=== PATIENT | male | born 1970 | race Caucasian/White ===

== ENCOUNTER 2020-12-07 09:34 | Emergency (ER) | payer BC, SELFPAY ==
--- NOTE | ~2020-12-07 | XR_ITS ---
EXAMINATION: XR chest 2V DATE: 12/07/2020 10:01 INDICATION: Chest tightness. TECHNIQUE: Frontal and lateral views of the chest were obtained. COMPARISON: Chest 2 views 08/19/2016 FINDINGS: The chest demonstrates clear lungs without pneumonia, pleural effusion, or pneumothorax. Th e heart size is normal. There is mild chronic anterior wedging of multiple thoracic vertebral bodies. IMPRESSION: 1. No acute cardiopulmonary disease. Reviewed, dictated and finalized at location A.
[2020-12-07 09:48] VITALS: BP 144/80; PULSE 87; RESP 18; TEMP 36.3; O2SAT 99
--- NOTE | 2020-12-07 10:43 | ED.SOB ---
HPI - SOB/Dyspnea General Chief Complaint: Shortness of Breath/Dyspnea Stated Complaint: chest pain Time Seen by Provider: 12/07/20 10:09 Source: patient and RN notes reviewed Mode of arrival: ambulatory Limitations: no limitations History of Present Illness HPI Narrative: Patient presents today complaining of an asthma exacerbation x3 days. He is on day 4 of the 5 to 6-day course of 60 mg of prednisone prescribed by his office rep. States typically when he is on a prednisone course he usually has some relief by now, but does not at this time. He called his on-call office rep and was told to come to [facility] for chest x-ray. This is the first time he has had an asthma flare since having COVID-19 in May. He has reported some soreness and tightness in his back muscles as well as some shortness of breath. Denies wheezing, which is typical for him when he has an asthma flare. He is adhering to his asthma action plan. He has had both COVID-19 vaccines MD elicited complaint: shortness of breath and asthma attack Related Data Home Medications Medication Instructions Recorded Confirmed amlodipine 10 mg PO DAILY 12/07/20 12/07/20 budesonide-formoterol [Symbicort] 1 inh INHALATION DIRECTED 12/07/20 12/07/20 famotidine 40 mg PO DAILY 12/07/20 12/07/20 indapamide 2.5 mg PO DAILY 12/07/20 12/07/20 lorazepam 0.5 mg PO DIRECTED 12/07/20 12/07/20 montelukast 10 mg PO DAILY 12/07/20 12/07/20 rosuvastatin 10 mg PO DAILY 12/07/20 12/07/20 Allergies Allergy/AdvReac Type Severity Reaction Status Date / Time fluticasone furoate Allergy Difficulty Verified 12/07/20 09:59 [From Breo Ellipta] Breathing lisinopril Allergy Swelling Verified 12/07/20 09:59 of Lip/Tongue/Throat vilanterol Allergy Difficulty Verified 12/07/20 09:59 [From Breo Ellipta] Breathing Review of Systems Review of Systems: Narrative: CONSTITUTIONAL: Denies body aches, fever, chills, or sweats. EYES: Denies visual changes, redness, or discharge. ENT: Denies rhinorrhea, congestion, sore throat, or otalgia. CARDIOVASCULAR: Denies chest pain, palpitations, or edema. RESPIRATORY: Denies cough. + Shortness of breath, back tightness GASTROINTESTINAL: Denies abdominal pain, nausea, vomiting, or diarrhea. GENITOURINARY: Denies dysuria or hematuria. SKIN: Denies rash, itching, or wounds. MUSCULOSKELETAL: Denies back pain, joint pain, or myalgia. NEUROLOGIC: Denies headache, numbness, tingling, or weakness. PSYCH: Denies depression or anxiety. [facility] Past Medical History Medical History (Updated 12/07/20 @ 12:39 by Stacey Deng, FURNIT[employer] MOVER DRIVER, ) Asthma GERD (gastroesophageal reflux disease) History of COVID-19 Hypercholesterolemia Hypertension Comments At time of signature, I have reviewed and agree with nursing past medical, surgical, social and family history unless otherwise noted. Please see nursing chart for further information. There is no relevant family history pertinent to the presenting complaint Exam Narrative: Exam Narrative: GENERAL: Well-appearing, well-nourished, and in no acute distress. HEAD: Normocephalic, atraumatic. EYES: EOMI. No redness or drainage. Conjunctivae normal. ENT: Mucous membranes pink and moist. NECK: Normal AROM. Supple. No lymphadenopathy. CHEST: No respiratory distress. Slight crackle in the right lower lobe, otherwise clear. HEART: Regular rate and rhythm. No murmur appreciated. Normal peripheral pulses. MUSCULOSKELETAL: No bony tenderness. EXTREMITIES: Normal range of motion. No edema. SKIN: Warm, dry, no rash. Capillary refill normal. Normal skin turgor. NEURO: No focal deficits. Alert and oriented x3. Gait steady. PSYCH: Normal affect. No signs of depression or anxiety. Course Course Emergency Course: Patient has a prescription for Xopenex waiting for him at his pharmacy. He has been instructed to finish his prednisone course. States he will call his office rep back after he
== END 2020-12-07 10:46 | disposition home or self-care (01) ==
PROVIDERS: Emergency Provider Nurse Practitioner; PCP Family Medicine
DX: J45.901 Unspecified asthma with (acute) exacerbation (principal); Z86.16 Personal history of COVID-19; K21.9 Gastro-esophageal reflux disease without esophagitis; E78.00 Pure hypercholesterolemia, unspecified; I10 Essential (primary) hypertension
CPT/HCPCS: 71046; 99213; G0463

== ENCOUNTER 2024-11-04 02:53 | Emergency (ER) | payer BC, SELFPAY ==
[2024-11-04] VITALS (8 sets, daily range): BP systolic 171–185; BP diastolic 94–98; PULSE 67–84; RESP 14–16; TEMP 36.3–36.7; O2SAT 94–98
--- OUTSIDE RECORDS SUMMARY | 2024-11-04 02:56 | XMS_ITS ---
Author Organization [facility] [place] ([address]) Address [address] [place] [address] Care Team Providers Care Fundraising Sale Representative Name Role Phone Hoang Gilbert MD Primary Care Provider Matt holm Jada Sandra Unavailable [phone] REASON FOR VISIT Patient billed $50.00 for missed appointment Medications Medication SIG (Take, Route, Frequency, Duration) Notes Start Date End Date Status hydroCHLOROthiazide 25 MG 1 tab(s) orally once a day Not-Taking dilTIAZem HCl ER 120 MG 1 cap(s) orally every 12 hours Not-Taking Symbicort 160-4.5 MCG/ACT INHALE 2 PUFFS BY MOUTH TWICE DAILY for 90 Not-Taking SIT (TRADITIONAL) VARIABLE PER SCHEDULE SC PER SCHEDULE for TO BE DETERMINED *Please review for potential replacement for e-prescription and drug interaction check* Not-Taking predniSONE 20 MG 4 tab(s) orally once a day for 7 day(s) Not-Taking Rosuvastatin Calcium 10 MG 1 tab(s) orally once a day Not-Taking Azelastine HCl 137 MCG/SPRAY 1-2 spray(s) intranasally 2 times a day for 30 day(s) Not-Taking Xyzal Allergy 24HR 5 MG 1 tab(s) orally once a day (in the evening) for 30 day(s) Not-Taking Wixela Inhub 100 MCG-50 MCG 1 INH INHALED 2 TIMES A DAY for 30 DAYS *Please review and pick correct strength-formul ation from [employer] options. If intended option is not shown, discontinue and re-order from Quick Search* 4 Not-Taking Symbicort 160-4.5 MCG/ACT INHALE 2 PUFFS BY MOUTH TWICE DAILY for 90 Not-Taking predniSONE 20 MG 4 tab(s) orally once a day for 5 day(s) Not-Taking ZyrTEC Allergy 10 MG 1 tab(s) orally once a day Not-Taking Triamterene-HCTZ 37.5-25 MG 1 tablet in the morning Orally Once a day Not-Taking Xopenex HFA 45 MCG/ACT 2 puff(s) inhaled every 4 hours Not-Taking Fluticasone Propionate 50 MCG/ACT 2 sprays intranasally once a day for 30 day(s) Not-Taking Levalbuterol HCl 45 MCG/INH 2 PUFF(S) INHALED PER ASTHMA ACTION PLAN for 30 DAY(S) *Please review and pick correct strength-formul ation from [employer] options. If intended option is not shown, discontinue and re-order from Quick Search* Active Montelukast Sodium 10 MG 1 tab(s) orally once a day for 90 days Active Dulera 100-5 MCG/ACT 2 puffs Inhalation twice a day for 30 days 4 Not-Taking Advair Diskus 100-50 MCG/ACT 1 puff Inhalation Twice a day Not-Taking BUDESONIDE-FORMOTEROL FUMARATE DIHYDRATE 160 MCG-4.5 MCG/INH 2 PUFF(S) INHALED 2 TIMES A DAY *Please review for potential replacement for e-prescription and drug interaction check* Active Budesonide-Formoterol Fumarate 160-4.5 MCG/ACT 2 puffs Inhalation twice a day for 90 days Active Xyzal Allergy 24HR 5 MG 1 tablet in the evening Orally Once a day Active SIT (TRADITIONAL) variable per schedule SC per schedule for to be determined Active amLODIPine Besylate 10 MG 1 tab(s) orally once a day Active Vitamin D3 125 MCG (5000 UT) as directed orally once a day for 30 day(s) Active AZELASTINE HYDROCHLORIDE NASAL 137 mcg/inh 1-2 spray(s) intranasally 2 times a day for 30 day(s) Active ALBUTEROL (EQV-PROVENTIL HFA) 90 mcg/inh 2 puff(s) inhaled per asthma action plan for 30 day(s) Not-Taking ZYRTEC 10 mg 1 tab(s) orally once a day Not-Taking FLUTICASONE PROPIONATE 50 mcg/inh 2 sprays intranasally once a day for 30 day(s) Not-Taking NASAL WASHES N/A as directed intranasally as needed for 30 Not-Taking VITAMIN D3 5000 intl units as directed orally once a day for 30 day(s) Not-Taking LEVALBUTEROL 45 mcg/inh 2 puff(s) inhale d per asthma action plan for 30 day(s) Not-Taking AMLODIPINE 10 mg 1 tab(s) orally once a day Not-Taking MONTELUKAST SODIUM 10 mg 1 tab(s) orally once a day for 90 days Not-Taking XOPENEX HFA 45 mcg/inh 2 puff(s) inhaled every 4 hours Not-Taking Auvi-Q 0.3 mg 0.3 mg intramuscularly once for 30 day(s) Not-Taking Encounters Encounter Location Date Provider Diagnosis [facility] [facility] [address] [place] [address] 10/20/2024 Jada Sandra Plan Of Treatment Pending Test Test Name Order Date Spirometry 10/20/2024 Next Appt Details Follow Up: prn, Reason: Provider Name:Alireza Corona Magdy , 11/28/2024 03:10:00 PM, [address] [facility], [place], [address], Progress Notes * Romina LEVIOB:1970 (54 yo M)Acc No.[id number]:10/20/2024 Asthma F/U Patient: Shaun GRANADOS Provider: Homa Sandra PA-C :1970 A ge:54 Y S ex:Male Date:10/20/2024 Address:[address] [place], [place] [id number] Pcp:Hoang Gilbert MD Subjective: * Chief Complaints: * Deya krueger billed $50.00 for missed appointment * Medical History: * Surgical History: * Hospitalization/Major Diagno stic Procedure: * Medications: T akingAuvi-Q 0.3 mg kit 0.3 mg intramuscularly once AZELASTINE HYDROCHLORIDE NASAL 137 mcg/inh spray 1-2 spray(s) intranasally 2 times a day SIT (TRADITIONAL) variable see record per schedule SC per schedule Budesonide-Formoterol Fumarate 160-4.5 MCG/ACT Aerosol 2 puffs Inhalation twice a day Xyzal Allergy 24HR 5 MG Tablet 1 tablet in the evening Orally Once a day amLODIPine Besylate 10 MG Tablet 1 tab(s) orally once a day Vitamin D3 125 MCG (5000 UT) Capsule as directed orally once a day Levalbuterol HCl 45 MCG/INH AEROSOL 2 PUFF(S) INHALED PER ASTHMA ACTION PLAN , Notes to Pharmacist: *Please review and pick correct strength-formulation from [employer] options. If intended option is not shown, discontinue and re-order from Quick Search*Montelukast Sodium 10 MG Tablet 1 tab(s) orally once a day BUDESONIDE-FORMOTEROL FUMARATE DIHYDRATE 160 MCG-4.5 MCG/INH AEROSOL 2 PUFF(S) INHALED 2 TIMES A DAY , Notes to Pharmacist: *Please review for potential replacement for e-prescription and drug interaction check*Taking Auvi-Q 0.3 mg kit 0.3 mg intramuscularly once Taking AZELASTINE HYDROCHLORIDE NASAL 137 mcg/inh spray 1-2 spray(s) intranasally 2 times a day Taking SIT (TRADITIONAL) variable see record per schedule SC per schedule Taking Budesonide-Formoterol Fumarate 160-4.5 MCG/ACT Aerosol 2 puffs Inhalation twice a day Taking Xyzal Allergy 24HR 5 MG Tablet 1 tablet in the evening Orally Once a day Taking amLODIPine Besylate 10 MG Tablet 1 tab(s) orally once a day Taking Vitamin D3 125 MCG (5000 UT) Capsule as directed orally once a day Taking Levalbuterol HCl 45 MCG/INH AEROSOL 2 PUFF(S) INHALED PER ASTHMA ACTION PLAN , Notes to Pharmacist: *Please review and pick correct strength-formulation from [employer] options. If intended option is not shown, discontinue and re-order from Quick Search*Taking Montelukast Sodium 10 MG Tablet 1 tab(s) orally once a day Taking BUDESONIDE-FORMOTEROL FUMARATE DIHYDRATE 160 MCG-4.5 MCG/INH AEROSOL 2 PUFF(S) INHALED 2 TIMES A DAY , Notes to Pharmacist: *Please review for potential replacement for e-prescription and drug interaction check*Not-Taking/PRNAuvi-Q 0.3 mg kit 0.3 mg intramuscularly once AMLODIPINE 10 mg tablet 1 tab(s) orally once a day VITAMIN D3 5000 intl units capsule as directed orally once a day LEVALBUTEROL 45 mcg/inh aerosol 2 puff(s) inhaled per asthma action plan MONTELUKAST SODIUM 10 mg tablet 1 tab(s) orally once a day XOPENEX HFA 45 mcg/inh aerosol 2 puff(s) inhaled every 4 hours ALBUTEROL (EQV-PROVENTIL HFA) 90 mcg/inh aerosol 2 puff(s) inhaled per asthma action plan ZYRTEC 10 mg tablet 1 tab(s) orally once a day FLUTICASONE PROPIONATE 50 mcg/inh spray 2 sprays intranasally once a day NASAL WASHES N/A 1 quart of sterilized tap water or distilled water, 1 tsp NaCl, 1 pinch of baking soda as directed intranasally as needed Dulera 100-5 MCG/ACT Aerosol 2 puffs Inhalation twice a day Advair Diskus 100-50 MCG/ACT Aerosol Powder Breath Activated 1 puff Inhalation Twice a day Triamterene-HCTZ 37.5-25 MG Tablet 1 tablet in the morning Orally Once a day Xopenex HFA 45 MCG/ACT Aerosol 2 puff(s) inhaled every 4 hours predniSONE 20 MG Tablet 4 tab(s) orally once a day ZyrTEC Allergy 10 MG Tablet 1 tab(s) orally once a day Fluticasone Propionate 50 MCG/ACT Suspension 2 sprays intranasally once a day Azelastine HCl 137 MCG/SPRAY Solution 1-2 spray(s) intranasally 2 times a day Rosuvastatin Calcium 10 MG Tablet 1 tab(s) orally once a day Wixela Inhub 100 MCG-50 MCG POWDER 1 INH INHALED 2 TIMES A DAY , Notes to Pharmacist: *Please review and pick correct strength-formulation from [employer] options. If intended option is not shown, discontinue and re-order from Quick Search*Symbicort 160-4.5 MCG/ACT Aerosol INHALE 2 PUFFS BY MOUTH TWICE DAILY Xyzal Allergy 24HR 5 MG Tablet 1 tab(s) orally once a day (in the evening) predniSONE 20 MG Tablet 4 tab(s) orally once a day Symbicort 160-4.5 MCG/ACT Aerosol INHALE 2 PUFFS BY MOUTH TWICE DAILY SIT (TRADITIONAL) VARIABLE SEE RECORD PER SCHEDULE SC PER SCHEDULE , Notes to Pharmacist: *Please review for potential replacement for e-prescription and drug interaction check*hydroCHLOROthiazide 25 MG Tablet 1 tab(s) orally once a day dilTIAZem HCl ER 120 MG Capsule Extended Release 12 Hour 1 cap(s) orally every 12 hours Not- Taking/PRN Auvi-Q 0.3 mg kit 0.3 mg intramuscularly once Not-Taking/PRN AMLODIPINE 10 mg tablet 1 tab(s) orally once a day Not-Taking/PRN VITAMIN D3 5000 intl units capsule as directed orally once a day Not-Taking/PRN LEVALBUTEROL 45 mcg/inh aerosol 2 puff(s) inhaled per asthma action plan Not-Taking/PRN MONTELUKAST SODIUM 10 mg tablet 1 tab(s) orally once a day Not-Taking/PRN XOPENEX HFA 45 mcg/inh aerosol 2 puff(s) inhaled every 4 hours Not-Taking/PRN ALBUTEROL (EQV-PROVENTIL HFA) 90 mcg/inh aerosol 2 puff(s) inhaled per asthma action plan Not-Taking/PRN ZYRTEC 10 mg tablet 1 tab(s) orally once a day Not-Taking/PRN FLUTICASONE PROPIONATE 50 mcg/inh spray 2 sprays intranasally once a day Not-Taking/PRN NASAL WASHES N/A 1 quart of sterilized tap water or distilled water, 1 tsp NaCl, 1 pinch of baking soda as directed intranasally as needed Not-Taking/PRN Dulera 100-5 MCG/ACT Aerosol 2 puffs Inhalation twice a day Not-Taking/PRN Advair Diskus 100-50 MCG/ACT Aerosol Powder Breath Activated 1 puff Inhalation Twice a day Not-Taking/PRN Triamterene-HCTZ 37.5-25 MG Tablet 1 tablet in the morning Orally Once a day Not-Taking/PRN Xopenex HFA 45 MCG/ACT Aerosol 2 puff(s) inhaled every 4 hours Not-Taking/PRN predniSONE 20 MG Tablet 4 tab(s) orally once a day Not-Taking/PRN ZyrTEC Allergy 10 MG Tablet 1 tab(s) orally once a day Not-Taking/PRN Fluticasone Propionate 50 MCG/ACT Suspension 2 sprays intranasally once a day Not-Taking/PRN Azelastine HCl 137 MCG/SPRAY Solution 1-2 spray(s) intranasally 2 times a day Not-Taking/PRN Rosuvastatin Calcium 10 MG Tablet 1 tab(s) orally once a day Not-Taking/PRN Wixela Inhub 100 MCG-50 MCG POWDER 1 INH INHALED 2 TIMES A DAY , Notes to Pharmacist: *Please review and pick correct strength-formulation from [employer] options. If intended option is not shown, discontinue and re-order from Quick Search*Not-Taking/PRN Symbicort 160-4.5 MCG/ACT Aerosol INHALE 2 PUFFS BY MOUTH TWICE DAILY Not-Taking/PRN Xyzal Allergy 24HR 5 MG Tablet 1 tab(s) orally once a day (in the evening) Not-Taking/PRN predniSONE 20 MG Tablet 4 tab(s) orally once a day Not-Taking/PRN Symbicort 160-4.5 MCG/ACT Aerosol INHALE 2 PUFFS BY MOUTH TWICE DAILY Not-Taking/PRN SIT (TRADITIONAL) VARIABLE SEE RECORD PER SCHEDULE SC PER SCHEDULE , Notes to Pharmacist: *Please review for potential replacement for e-prescription and drug interaction check*Not- Taking/PRN hydroCHLOROthiazide 25 MG Tablet 1 tab(s) orally once a day Not-Taking/PRN dilTIAZem HCl ER 120 MG Capsule Extended Release 12 Hour 1 cap(s) orally every 12 hours Objective: * Vitals: Assessment: Plan: * Treatment: * Procedure Codes: 0 0002 No Show - Follow-up * Follow Up: p rn * Billing Information: * Visit Code: * Procedure Codes: 80053 No Show - Follow-up. * Sign off status: Completed true * Provider: Homa Sandra PA-C Date: 0 10/20/2024 Generated for Mima mayorga/[employer] on: 11/04/2024 02:56 AM CDT History and Physical Notes * HPI (History of Present Illness) Category Sub-Category Detail Notes Category Not es *Introduction
--- OUTSIDE RECORDS SUMMARY | 2024-11-04 02:56 | XMS_ITS | Referral Summary ---
Author Organization [facility] Address [address] [place] [id number] Care Team Providers Care Spine Surgeon Name Role Phone Hoang Gilbert MD Primary Care Provider [phone] Encounters Date Type Department Care Team Description 08/15/2024 3:30 PM WEIGH MACHINE OPERATOR Office Visit [facility] at [address] [place] [address] Haong Gilbert MD Annual physical exam (Primary Dx); Hypogonadism in male; Hyperlipidemia, unspecified hyperlipidemia type; Benign prostatic hyperplasia with urinary frequency from Last 3 Months Allergies Active Allergy Reactions Criticality Noted Date Comments Fluticasone Furoate-Vilanterol Anxiety Low 11/29/2018 Anxiety increased blood pressure Lisinopril Cough,Shortness of breath High 11/29/2018 shortness of breath Olmesartan Shortness of breath High 11/29/2018 shortness of breath Tiotropium [place] Shortness of breath High 11/04/19 20 Vilanterol Unknown Low 06/04/2019 Elevated BP Medications PROAIR HFA 90 mcg/actuation inhaler Inhale 1 puff as needed for wheezing or shortness of breath 9 Active Symbicort 160-4.5 mcg/actuation inhalerIndicatio ns:Acute Asthma Attack,Maintenan ce Therapy for Asthma Inhale 2 puffs 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 0 Active LORazepam (ATIVAN) 0.5 mg tablet Take 1 tablet (0.5 mg total) by mouth every 8 (eight) hours as needed for anxiety 30 tablet 1 Active levocetirizine (XYZAL) 5 mg tabletIndication s:Allergic Rhinitis Take 1 tablet (5 mg total) by mouth as needed for allergies Active multivitamin tabletIndication s:Vitamin Deficiency Prevention Take 1 tablet by mouth 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 Active ascorbic acid (CHRISTOPHER-C ORAL)Indications :health Take 1 tablet by mouth 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 Active vitamin D3-vitamin K2 25 mcg (1,000 unit)-90 mcg tablet,disintegr atingIndications :health Take 1 tablet by mouth 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 Active magnesium gluconate 200 mg tabletIndication s:hypomagnesemia Take 1 tablet (200 mg total) by mouth 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 Active creatinine, bulk, 100 % powderIndication s:health Take 1 Dose by mouth 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 Active food supplemt, lactose-reduced liquidIndication s:health Take 1 Dose by mouth 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 EEA Active herbal drugs tabletIndication s:SAt/. WEd Take 1 tablet by mouth 2 (two) times a week TRT- hormone therapy Active oxyCODONE (ROXICODONE) 5 mg immediate release tabletIndication s:Pain TAKE ONE TO TWO TABLETS EVERY 4 TO 6 HOURS PRN PAIN 30 tablet 4 Active docusate sodium (COLACE) 100 mg capsuleIndicatio ns:constipation Take 1 capsule (100 mg total) by mouth 2 (two) times a day for 14 days 28 capsule 4 Active rosuvastatin (CRESTOR) 10 mg tablet Take 1 tablet (10 mg total) by mouth daily Active amLODIPine (NORVASC) 10 mg tablet Take 1 tablet (10 mg total) by mouth daily 90 tablet 1 5 Active montelukast (SINGULAIR) 10 mg tablet Take 1 tablet (10 mg total) by mouth daily 90 tablet 1 5 Active tadalafiL (CIALIS) 5 mg tabletIndication s:Benign prostatic hyperplasia with urinary frequency Take 1 tablet (5 mg total) by mouth daily TAKE 1 TABLET BY MOUTH EVERY DAY NEEDED 90 tablet 1 5 Active Active Problems Problem Noted Date Diagnosed Date 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 03/08/2024 Allergic rhinitis due to animal hair and dander 09/10/2022 Allergic rhinitis due to pollen 09/10/2022 Chronic allergic conjunctivitis 09/10/2022 Allergic rhinitis 09/10/2022 High risk medication use 09/10/2022 Hypertrophy of nasal turbinates 09/10/2022 Wheezing 09/10/2022 Encounter for screening for malignant neoplasm o f colon 05/28/2022 Overview (05/28/2022): Added automatically from request for surgery [id number] Body mass index 40.0-44.9, adult ([facility]) 03/12 Paradoxical vocal fold motion disorder Assessment & Plan (02/12/2021 4:46 PM CDT): I have recommended laryngeal control therapy here at the [facility] in order to control the patient's symptoms. The patient's diagnosis was discussed in detail along with how therapy can improve it. Benign prostatic hyperplasia with urinary freque ncy 10/28/2019 Moderate persistent asthma 07/04/2019 Chronic right-sided low back pain without sciati ca 01/10/2019 Hyperlipidemia 09/06/2018 Assessment & Plan (12/30/2019 2:07 PM CDT): Low-fat low-cholesterol diet. Crestor 10 mg bedtime daily. Had min time the total cholesterol was 280 according to him. On 07/30/2019 the total cholesterol was 180, HDL 56, LDL 100, triglycerides 141. GERD (gastroesophageal reflux disease) 9 CTS (carpal tunnel syndrome) 01/11/2018 ED (erectile dysfunction) 01/11/2018 BPH (benign prostatic hyperplasia) 12/10/2017 Vitamin D deficiency 06/29/2017 Exercise-induced asthma 06/24/2017 Essential hypertension 01/15/2016 Assessment & Plan (12/30/2019 2:05 PM CDT): Blood pressure 128/82. Salt restriction. Continue the current regimen. Resolved Problems Problem Noted Date Diagnosed Date Resolved Date Acute severe exacerbation of severe persistent asthma 09/10/2022 02/17/2024 Cough 09/10/2022 02/17/2024 COVID-19 09/10/2022 02/17/2024 Shortness of breath 12/01/2019 06/01/20 Assessment & Plan (12/30/2019 2:06 PM CDT): EKG today shows normal sinus rhythm, incomplete right bundle branch block. Will get BNP level. Stress echo to look for myocardial ischemia. Apnea 11/04/2019 02/17/2024 Anxiety 07/04/2019 02/17/2024 Anal itching 03/30/2019 06/01/2020 Elbow pain 12/18/2014 06/01/2020 Immunizations Immunization Administration Dates Next Due Influenza, Quadrivalent, Spl it, Preservative Free, Intramuscular 06/20/2020,04/24/2018,04/23/2018 Influenza, Trivalent, Cell Culture-based MDCK, Preservative Free, Antibiotic Free, Intramuscular 06/14/2019 Influenza, Trivalent, IM (MDV) 04/15/2021,2018 Influenza, Unspecified 05/26/2023,2021,03/12/2022(Defer red: Patient Refused),07/13/2021(Deferred: Patient Refused),07/13/2020(Deferred: Patient Refused),04/12/2019,05/27/2017 Pneumococcal Conjugate Pcv20 03/11/2023 Pneumococcal Polysaccharide PPV23 04/18/2019 Tdap 09/10/2022 ZOSTER Recombinant 03/03/2023,12/26/2022 Social History Tobacco Use Types Packs/Day Years Used Date Smoking Tobacco: Former Cigarettes Q uit: 07/13/2006 Smokeless Tobacco: Never Tobacco Cessation:Counseling Given: Not Answered Alcohol Use Standard Drinks/Week Comments Yes 0 (1 standard drink = 0.6 oz pur e alcohol) AUDIT-C Answer Date Recorded Q1: How often do you have a drink containing alc ohol? Monthly or less 08/15/2024 Q2: How many drinks containi ng alcohol do you have on a typical day when you are drinking? 1 or 2 08/15/2024 Q3: How often do you have si x or more drinks on one occasion? Never 08/15/2024 PHQ-2 Answer Date Recorded PHQ-2 Total Score (If total score is 3 or more points, staff should administer the PHQ-9) 0 02/17/2024 Personal Safety Answer Date Recorded Have you ever been in or are you currently in a harmful physical or emotional relationship or is someone making you feel afraid or unsafe? Denies 03/21/2024 Sex and Gender Information Value Date Recorded Sex Assigned at Not on file Legal Sex Male 11:01 AM WEIGH MACHINE OPERATOR Gender Identity Male 06/01/2020 11:20 AM WEIGH MACHINE OPERATOR Sexual Orientation Straight 06/01/2020 11 :20 AM WEIGH MACHINE OPERATOR Last Filed Vital Signs Vital Sign Reading Time Taken Comments Blood Pressure 130/80 08/15/2024 3:25 PM WEIGH MACHINE OPERATOR Pulse 90 08/15/2024 3:25 PM WEIGH MACHINE OPERATOR Temperature 37 C (98.6 F) 08/15/2024 3:25 PM WEIGH MACHINE OPERATOR Respiratory Rate 15 03/21/2024 11:1 0 AM CDT Oxygen Saturation 94% 08/15/2024 3:25 PM WEIGH MACHINE OPERATOR Inhaled Oxygen Concentration - - Weight 119.9 kg (264 lb 4.8 oz) 08/15/2024 3:25 PM WEIGH MACHINE OPERATOR Height 180.3 cm (5' 11 ) 08/15/2024 3:25 PM WEIGH MACHINE OPERATOR Body Mass Index 36.86 08/15/2024 3:25 PM WEIGH MACHINE OPERATOR Plan of Treatment Not on file Medical Devices Implanted Type Area Fuel Efficient Aircraft Designer Device Identifier Shelf Expiration Date Model / Serial / Lot [employer] Mountain Services Manager Large Eyelet Pectoralis Button Fixation Latex Free [id number] - [id number] Implanted:Qty: 1 on 03/21/2024 by Yash Meng MD at [facility] Left: Shoulder [employer] 10/10/2028 AR-2267 / / [id number] Procedures Procedure Name Priority Date/Time Associated Diagnosis Comments PSA SCREEN Routine 02/05/2024 7:17 AM CDT Benign prostatic hyperplasia with urinary frequency COLONOSCOPY 06/20/2022 10:05 AM WEIGH MACHINE OPERATOR from Last 3 Months or Most Recently Relevant to Health Maintenance Results * PSA screen (02/05/2024 7:17 AM CDT) PSA 0.99 < OR = 4.00 ng/mL [facility] Comment: The total PSA value from this assay system is standardized against the WHO standard. The test result will be approximately 20% lower when compared to the equimolar-standardized total PSA ([place]). Comparison of serial PSA results should be interpreted with this fact in mind. This test was performed using the Siemens chemiluminescent method. Values obtained from different assay methods cannot be used interchangeably. PSA levels, regardless of value, should not be interpreted as absolute evidence of the presence or absence of disease. Blood 02/05/2024 7:17 AM CDT 02/05/2024 7:18 AM CDT us Hoang Gilbert MD LAB BLOOD ORDERABLES Final Re sult [facility] [id number] [address] [place] [id number] * COLONOSCOPY (06/20/2022 10:05 AM WEIGH MACHINE OPERATOR) Anatomical Region Laterality Modality Other Narrative Procedure Note George Jaimes MD - 06/20/2022 10:05 AM CST [facility] Patient Name: Shaun Mcdermott Procedure Date: 06/20/2022 10:05 AM Date of : 1970 Admit Type: Outpatient Age: 52 Gender: Male Note Status: Finalized Attending MD: George Jaimes M.D. Procedure Date: 06/20/2022 Procedure: Colonoscopy Indications: Screening for colorectal malignant neoplasm, Thisis the patient's first colonoscopy Providers: George Jaimes M.D., Yarelis Andres, DIRECTOR OF SALES SUPPORT (Anesthesia Staff), Sylvia Schultz RN, Vipul Ortega, Services Executive Referring MD: Hoang Gilbert M.D. Medicines: Monitored Anesthesia Care Complications: No immediate complications. Estimated Blood Loss: Estimated blood loss was minimal. Procedure: Pre-Anesthesia Assessment: - Prior to the procedure, a History and Physicalwas performed, and patient medications and allergieswere reviewed. The patient is competent. The risks and benefits of the procedure and the sedation optionsand risks were discussed with the patient. Allquestions were answered and informed consent was obtained. Patient identification and proposed procedure were verified by the physician, the nurse and the steam table attendant in the procedure room. Mental Status Examination: alert and oriented. AirwayExamination: normal oropharyngeal airway and neck mobility. Respiratory Examination: clear to auscultation. CV Examination: normal. Prophylactic Antibiotics: The patient does not require prophylactic antibiotics. Prior Anticoagulants: The patient has taken no anticoagulant or antiplatelet agents. ASA Grade Assessment: III - A patient with severe systemic disease. After reviewing the risks and benefits,the patient was deemed in satisfactory condition to undergo the procedure. The anesthesia plan was touse monitored anesthesia care (MAC). Immediately priorto administration of medications, the patient was re-assessed for adequacy to receive sedatives. The heart rate, respiratory rate, oxygen saturations, blood pressure, adequacy of pulmonary ventilation,and response to care were monitored throughout the procedure. The physical status of the patient was re-assessed after the procedure. - The risks and benefits of the procedure and the sedation options and risks were discussed with the patient. All questions were answered and informed consent was obtained. After I obtained informed consent, the scope was passed under direct vision. Throughout theprocedure, the patient's blood pressure, pulse, and oxygen saturations were monitored continuously. The scopewas passed under direct vision. The Colonoscope was introduced through the anus and advanced to the the cecum, identified by appendiceal orifice andileocecal valve. The colonoscopy was performed without difficulty. The patient tolerated the procedurewell. The quality of the bowel preparation was adequate.The quality of the bowel preparation was adequate. The bowel preparation used was Clenpiq via split dose instruction. Findings: A 4 mm polyp was found in the descending colon. The polyp wassessile. The polyp was removed with a jumbo cold forceps. Resection andretrieval were complete. Estimated blood loss was minimal. A 7 mm polyp was found in the recto-sigmoid colon. The polyp was sessile. The polyp was removed with a cold snare. Resection and retrieval were complete. Estimated blood loss was minimal. The exam was otherwise without abnormality on direct and retroflexion views. Impression: - One 4 mm polyp in the descending colon, removedwith a jumbo cold forceps. Resected and retrieved. - One 7 mm polyp at the recto-sigmoid colon,removed with a cold snare. Resected and retrieved. - The examination was otherwise normal on directand retroflexion views. Recommendation: - Await pathology results. - Repeat colonoscopy in 5 years for surveillancebased on pathology results. Procedure Code(s): --- Professional --- 48843, Colonoscopy, flexible; with removal of tumor(s), polyp(s), or other lesion(s) by snare technique 80469, 59, Colonoscopy, flexible; with biopsy,single or multiple Diagnosis Code(s): --- Professional --- Z12.11, Encounter for screening for malignantneoplasm of colon D12.4, Benign neoplasm of descending colon D12.7, Benign neoplasm of rectosigmoid junction CPT copyright 2020 [employer]. All rights reserved. The codes documented in this report are preliminary and upon comsec manager reviewmay be revised to meet current compliance requirements. Electronically signed by George Jaimes M.D. Ivon RamirezD. 06/20/2022 10:55:42 AM Number of Addenda: 0 Note Initiated On: 06/20/2022 10:05 AM George Jaimes MD ENDOSCOPY PROCEDURES Fi nal Result from Last 3 Months or Most Recently Relevant to Health Maintenance Insurance ANTHSocialeyes App ACCESS CHOICE ANTHSocialeyes App ACCESS CHOICE ANTHEM ACCESS CHOICE Care Teams Spine Surgeon Relationship Specialty Start Date End Date Hoang Gilbert MD PCP - General Family Medicine 03/19/23
--- OUTSIDE RECORDS SUMMARY | 2024-11-04 02:56 | XMS_ITS | Clinical Summary ---
Author Organization [facility] [place] Address [address] [place] [address] Care Team Providers Care Laundry Tub Maker Name Role Phone Hoang Gilbert MD Primary Care Provider [phone] Allergies Active Allergy Reactions Criticality Noted Date Comments Fluticasone Furoate-Vilanterol Anxiety Low 11/29/2018 Anxiety increased blood pressure Lisinopril Cough,Shortness of breath High 11/29/2018 shortness of breath Olmesartan Shortness of breath High 11/29/2018 shortness of breath Tiotropium [place] Shortness of breath High 11/04/19 20 Vilanterol Unknown Low 06/04/2019 Elevated BP Medications PROAIR HFA 90 mcg/actuation inhaler Inhale 1 puff as needed for wheezing or shortness of breath 9 Active Symbicort 160-4.5 mcg/actuation inhalerIndicatio ns:Acute Asthma Attack,Maintenan ce Therapy for Asthma Inhale [address] before breakfast 0 Active LORazepam (ATIVAN) 0.5 mg tablet Take 1 tablet (0.5 mg total) by mouth every 8 (eight) hours as needed for anxiety 30 tablet 1 Active levocetirizine (XYZAL) 5 mg tabletIndication s:Allergic Rhinitis Take 1 tablet (5 mg total) by mouth as needed for allergies Active multivitamin tabletIndication s:Vitamin Deficiency Prevention Take [address] mouth [address] manager before breakfast Active ascorbic acid (CHRISTOPHER-C ORAL)Indications :health Take [address] mouth [address] manager before breakfast Active vitamin D3-vitamin K2 25 mcg (1,000 unit)-90 mcg tablet,disintegr atingIndications :health Take [address] manager before breakfast Active magnesium gluconate 200 mg tabletIndication s:hypomagnesemia Take 1 tablet (200 mg total) by mouth court manager before breakfast Active creatinine, bulk, 100 % powderIndication s:health Take [address]ose by mouth [address] manager before breakfast Active food supplemt, lactose-reduced liquidIndication s:health Take [address] mouth [address] manager before breakfast EEA Active herbal drugs tabletIndication [...] (05/28/2022): Added automatically from request for surgery [id number] Body mass index 40.0-44.9, adult ([facility]) 03/12 Paradoxical vocal fold motion disorder Assessment & Plan (02/12/2021 4:46 PM CDT): I have recommended laryngeal control therapy here at the [facility] in order to [...] 09/10/2022 02/17/2024 Shortness of breath 12/01/2019 06/01/20 20 Assessment & Plan (12/30/2019 2:06 PM CDT): EKG today shows normal sinus rhythm, incomplete right bundle branch block. Will get BNP level. Stress echo to look for myocardial ischemia. Apnea 11/04/2019 02/17/2024 Anxiety 07/04/2019 02/17/2024 Anal itching 03/30/2019 06/01/2020 Elbow pain 12/18/2014 06/01/2020 Encounters Date Type Department Care Team Description 08/15/2024 3:30 PM RAILROAD CONDUCTOR Office Visit [facility] at [address] [place] [address] Hoang Gilbert MD Annual physical exam (Primary Dx); Hypogonadism in male; Hyperlipidemia, unspecified hyperlipidemia type; Benign prostatic hyperplasia with urinary frequency from Last 3 Months Immunizations Immunization Administration Dates Next Due Influenza, Quadrivalent, Spl it, Preservative Free, Intramuscular 06/20/2020,04/24/2018,04/23/2018 Influenza, Trivalent, Cell Culture-based MDCK, Preservative Free, Antibiotic Free, Intramuscular 06/14/2019 Influenza, Trivalent, IM (MDV) 04/15/2021,2018 Influenza, Unspecified 05/26/2023,2021,03/12/2022(Defer red: Patient Refused),07/13/2021(Deferred: Patient Refused),07/13/2020(Deferred: Patient Refused),04/12/2019,05/27/2017 Pneumococcal Conjugate Pcv20 03/11/2023 Pneumococcal Polysaccharide PPV23 04/18/2019 Tdap 09/10/2022 ZOSTER Recombinant 03/03/2023,12/26/2022 Surgical History Surgery Date Site/Laterality Comments CARPAL TUNNEL RELEASE 12/11/2018 - 01/09/2019 Right CARPAL TUNNEL RELEASE 07/13/1996 - 07/12/1997 Left FINGER SURGERY 07/13/2004 - 07/12/2005 Left thumb - ligament repair COLONOSCOPY 07/13/2023 - 07/12/2024 Medical History Medical History Date Comments Hypercholesteremia GERD (gastroesophageal reflux disease) Hyperlipidemia Asthma Vitamin D deficiency Hypertension Family History Medical History Relation Name Comments Aneurysm Father Cerebral aneurysm Father Family his tory of cerebral aneurysm - (Added by TW Conv) No Known Problems Maternal Grandfather Heart attack Maternal Grandmother Hypertension Mother No Known Problems Paternal Grandfather No Known Problems Paternal Grandmother Anesthesia problems Neg Hx Relation Name Status Comments Father Maternal Grandfather Maternal Grandmother Mother Alive Paternal Grandfather Paternal Grandmother Social History Tobacco Use Types Packs/Day Years [...] on file Legal Sex Male 11:01 AM RAILROAD CONDUCTOR Gender Identity Male 06/01/2020 11:20 AM RAILROAD CONDUCTOR Sexual Orientation Straight 06/01/2020 11 :20 AM RAILROAD CONDUCTOR Obstetrics History Last Filed Vital Signs Vital Sign Reading Time Taken Comments Blood Pressure 130/80 08/15/2024 3:25 PM RAILROAD CONDUCTOR Pulse 90 08/15/2024 3:25 PM RAILROAD CONDUCTOR Temperature 37 C (98.6 F) 08/15/2024 3:25 PM RAILROAD CONDUCTOR Respiratory Rate 15 03/21/2024 11:1 0 AM CDT Oxygen Saturation 94% 08/15/2024 3:25 PM RAILROAD CONDUCTOR Inhaled Oxygen Concentration - - Weight 119.9 kg (264 lb 4.8 oz) 08/15/2024 3:25 PM RAILROAD CONDUCTOR Height 180.3 cm (5' 11 ) 08/15/2024 3:25 PM RAILROAD CONDUCTOR Body Mass Index 36.86 08/15/2024 3:25 PM RAILROAD CONDUCTOR Plan of Treatment Health Maintenance Due Date Last Done Comments Hepatitis C Screening 1970 Hepatitis B Screening 1989 Covid-19 Vaccine (2023-2 5 season) 2024 08/23/2021, 09/22/2020, 09/01/2020 Depression Screening 02/16/2025 02/17/2024, 03/11/2023, 09/10/2022, Additional history exists Regular Well Visit/Exam 18-64 08/15/2025, 03/11/2023, 03/12/2022, Additional history exists Prostate Cancer Screening-PSA 02/04/2026, 03/10/2023, 02/18/2022, Additional history exists Colon Cancer Screening-Colonoscopy 06/20/20322021 DTaP/Tdap/Td Vaccine (2 - Td or Tdap) 09/10/2032 09/10/2022 Zoster Vaccine Completed 03/03/2023, 12/26/2022 Pneumococcal vaccine <65 Completed 03/11/2023, 1001/2019 Influenza Vaccine Completed 05/18/2024, , 04/13/2022, Additional history exists Medical Devices Implanted Type Area City Planner Device Identifier Shelf Expiration Date Model / Serial / Lot [employer] Absorption Plant Operator Large Eyelet Pectoralis Button Fixation Latex Free [id number] - [id number] Implanted:Qty: 1 on 03/21/2024 by Yash Meng MD at [facility] Left: Shoulder [employer] 10/10/2028 AR-2267 / / [id number] Procedures Procedure Name Priority Date/Time Associated Diagnosis Comments PSA SCREEN Routine 02/05/2024 7:17 AM CDT Benign prostatic hyperplasia with urinary frequency COLONOSCOPY 06/20/2022 10:05 AM RAILROAD CONDUCTOR from Last 3 Months or Most Recently Relevant to Health Maintenance Results * PSA screen (02/05/2024 7:17 AM CDT) PSA 0.99 < OR = 4.00 ng/mL [facility] Comment: The total PSA value from this assay system is standardized against the WHO standard. The test result will be approximately 20% lower when compared to the equimolar-standardized total PSA ([place]). Comparison of serial PSA results should be [...] MD LAB BLOOD ORDERABLES Final Re sult [facility] [address] [facility] [place] [address] * COLONOSCOPY (06/20/2022 10:05 AM RAILROAD CONDUCTOR) Anatomical Region Laterality Modality Other Narrative Procedure Note George Jaimes MD - 06/20/2022 10:05 AM CST [facility] Patient Name: Shaun Mcdermott Procedure Date: 06/20/2022 10:05 AM Date of : 1970 Admit Type: Outpatient Age: 52 Gender: Male Note Status: Finalized Attending MD: George Jaimes M.D. Procedure Date: 06/20/2022 Procedure: Colonoscopy Indications: Screening for colorectal malignant neoplasm, Thisis the patient's first colonoscopy Providers: George Jaimes M.D., Yarelis Andres CRNA (Anesthesia Staff), Sylvia Schultz RN, Vipul Ortega, Front Desk Receptionist Referring MD: Hoang Gilbert M.D. Medicines: Monitored [...] by the physician, the nurse and the speech professor in the procedure room. Mental Status Examination: [...] pathology results. Procedure Code(s): --- Professional --- 22610, Colonoscopy, flexible; with removal of tumor(s), polyp(s), or other lesion(s) by snare technique 86281, 59, Colonoscopy, flexible; with biopsy,single or multiple Diagnosis Code(s): --- Professional --- Z12.11, Encounter for screening for malignantneoplasm of colon D12.4, Benign neoplasm of descending colon D12.7, Benign neoplasm of rectosigmoid junction CPT copyright 2020 [employer]. All rights reserved. The codes documented in this report are preliminary and upon engineer technical staff reviewmay be revised to meet current compliance requirements. Electronically signed by George Jaimes M.D. George Jaimes M.D. 06/20/2022 10:55:42 AM Number of Addenda: 0 Note Initiated On: 06/20/2022 10:05 AM George Jaimes MD ENDOSCOPY PROCEDURES Fi nal Result from Last 3 Months or Most Recently Relevant to Health Maintenance Insurance [employer] ACCESS CHOICE [employer]TH[employer] ACCESS CHOICE [employer] ACCESS CHOICE ANTHEM ACCESS CHOICE Care Teams Laundry Tub Maker Relationship Specialty Start Date End Date Hoang Gilbert MD PCP - General Family Medicine 03/19/23
--- OUTSIDE RECORDS SUMMARY | 2024-11-04 02:56 | XMS_ITS ---
Author Organization [facility] [place] ([address]) Address [address] [facility] [address] [place] [address] Care Team Providers Care Director Of Research Center Name Role Phone Hoang Gilbert MD Primary Care Provider Unavailab Jada Romero Unavailable [phone] Alireza Curran Unavailable [phone] REASON FOR VISIT SCIT - Traditional Schedule Allergy Immunotherapy Medications Medication SIG (Take, Route, Frequency, Duration) Notes Start Date End Date Status SIT (TRADITIONAL) VARIABLE PER SCHEDULE SC PER SCHEDULE for TO BE DETERMINED *Please review for potential replacement for e-prescription and drug interaction check* Not-Taking Symbicort 160-4.5 MCG/ACT INHALE 2 PUFFS BY MOUTH TWICE DAILY for 90 Not-Taking hydroCHLOROthiazide 25 MG 1 tab(s) orally once a day Not-Taking dilTIAZem HCl ER 120 MG 1 cap(s) orally every 12 hours Not-Taking predniSONE 20 MG 4 tab(s) orally once a day for 7 day(s) Not-Taking Rosuvastatin Calcium 10 MG 1 tab(s) orally once a day Not-Taking Azelastine HCl 137 MCG/SPRAY 1-2 spray(s) intranasally 2 times a day for 30 day(s) Not-Taking Symbicort 160-4.5 MCG/ACT INHALE 2 PUFFS BY MOUTH TWICE DAILY for 90 Not-Taking Wixela Inhub 100 MCG-50 MCG 1 INH INHALED 2 TIMES A DAY for 30 DAYS *Please review and pick correct strength-formul ation from Medispan options. If intended option is not shown, discontinue and re-order from Quick Search* 4 Not-Taking Xyzal Allergy 24HR 5 MG 1 tab(s) orally once a day (in the evening) for 30 day(s) Not-Taking Xopenex HFA 45 MCG/ACT 2 puff(s) inhaled every 4 hours Not-Taking Triamterene-HCTZ 37.5-25 MG 1 tablet in the morning Orally Once a day Not-Taking predniSONE 20 MG 4 tab(s) orally once a day for 5 day(s) Not-Taking Fluticasone Propionate 50 MCG/ACT 2 sprays intranasally once a day for 30 day(s) Not-Taking ZyrTEC Allergy 10 MG 1 tab(s) orally once a day Not-Taking Levalbuterol HCl 45 MCG/INH 2 PUFF(S) INHALED PER ASTHMA ACTION PLAN for 30 DAY(S) *Please review and pick correct strength-formul ation from [employer] options. If intended option is not shown, discontinue and re-order from Quick Search* Active BUDESONIDE-FORMOTEROL FUMARATE DIHYDRATE 160 MCG-4.5 MCG/INH 2 PUFF(S) INHALED 2 TIMES A DAY *Please review for potential replacement for e-prescription and drug interaction check* Active Montelukast Sodium 10 MG 1 tab(s) orally once a day for 90 days Active Advair Diskus 100-50 MCG/ACT 1 puff Inhalation Twice a day Not-Taking Dulera 100-5 MCG/ACT 2 puffs Inhalation twice a day for 30 days 4 Not-Taking SIT (TRADITIONAL) variable per schedule SC per schedule for to be determined Active Xyzal Allergy 24HR 5 MG 1 tablet in the evening Orally Once a day Active Budesonide-Formoterol Fumarate 160-4.5 MCG/ACT 2 puffs Inhalation twice a day for 90 days Active amLODIPine Besylate 10 MG 1 tab(s) orally once a day Active Vitamin D3 125 MCG (5000 UT) as directed orally once a day for 30 day(s) Active AZELASTINE HYDROCHLORIDE NASAL 137 mcg/inh 1-2 spray(s) intranasally 2 times a day for 30 day(s) Active ZYRTEC 10 mg 1 tab(s) orally once a day Not-Taking ALBUTEROL (EQV-PROVENTIL HFA) 90 mcg/inh 2 puff(s) inhaled per asthma action plan for 30 day(s) Not-Taking NASAL WASHES N/A as directed intranasally as needed for 30 Not-Taking FLUTICASONE PROPIONATE 50 mcg/inh 2 sprays intranasally once a day for 30 day(s) Not-Taking VITAMIN D3 5000 intl units as directed orally once a day for 30 day(s) Not-Taking AMLODIPINE 10 mg 1 tab(s) orally once a day Not-Taking LEVALBUTEROL 45 mcg/inh 2 puff(s) inhale d per asthma action plan for 30 day(s) Not-Taking XOPENEX HFA 45 mcg/inh 2 puff(s) inhaled every 4 hours Not-Taking MONTELUKAST SODIUM 10 mg 1 tab(s) orally once a day for 90 days Not-Taking Auvi-Q 0.3 mg 0.3 mg intramuscularly once for 30 day(s) Not-Taking Encounters Encounter Location Date Provider Diagnosis [facility] [address] [facility] [address] [place] [address] 11/01/2024 Alireza Curran Allergic rhinitis du e to pollen J30.1 ; Other allergic rhinitis J30.89 ; Allergic rhinitis due to animal (cat) (dog) hair and dander J30.81 and Other chronic allergic conjunctivitis H10.45 Assessments Encounter Date Diagnosis (ICD Code) Assessment Notes Treatment Notes Treatment Clinical Notes Section Notes 11/01/2024 Allergic rhinitis due to pollen (ICD-10 - J30.1) 11/01/2024 Other allergic rhinitis (ICD-10 - J30.89) 11/01/2024 Allergic rhinitis due to animal (cat) (dog) hair and dander (ICD-10 - J30.81) 11/01/2024 Other chronic allergic conjunctivitis (ICD-10 - H10.45) Plan Of Treatment Next Appt Details Follow Up: 1 Week, Reason: Provider Name:Alireza Curran , 11/28/2024 03:10:00 PM, [address] [employer], [address], [place], [address], Progress Notes * Romina LEVIOB:1970 (54 yo M)Acc No.[id number]:11/01/2024 SCIT-Aeroallergen Patient: Anuel Shaun SILVERMAN Provider: Deya Curran MD :1970 A ge:54 Y S ex:Male Date:11/01/2024 Address:[address] [place] [address] Pcp:Hoang Gilbert MD Subjective: * Chief Complaints: * S CIT - Traditional Schedule Allergy Immunotherapy * HPI: * Introduction: The patient is here for scheduled immunotherapy. Please see the attached specialty form regarding the specifics of the administration of these vaccines. As per our protocol, they must undergo a screening health questionnaire (medication changes, reaction(s) to last immunotherapy dose(s), current health status, ACT (if appropriate), self-injectable epinephrine on patient(?) and peak flow (if appropriate)). Also, the patient must wait in our office for 30 minutes after receiving the vaccine(s). Furthermore, every patient must have an epinephrine pen (self-injectable) with them at the time of administration--and carry if for the following 1.5 hours after they leave our office. The patient must also have taken their antihistamine the day of the injection, preferably 2 hours prior. The consent form for SCIT (subcutaneous immunotherapy) is on file. * Medical History: * Surgical History: * Hospitalization/Major Diagno stic Procedure: * Medications: T akingAZELASTINE HYDROCHLORIDE NASAL 137 mcg/inh spray 1-2 spray(s) [...] *Please review and pick correct strength-formulation from Medispan options. If intended option is not shown, discontinue and re-order from Quick Search*Montelukast Sodium 10 MG Tablet 1 tab(s) orally once a day BUDESONIDE-FORMOTEROL FUMARATE DIHYDRATE 160 MCG-4.5 MCG/INH AEROSOL 2 PUFF(S) INHALED 2 TIMES A DAY , Notes to Pharmacist: *Please review for potential replacement for e-prescription and drug interaction check*Taking AZELASTINE HYDROCHLORIDE NASAL 137 mcg/inh spray 1-2 [...] *Please review and pick correct strength-formulation from [employer] options. If intended option is not shown, [...] *Please review and pick correct strength-formulation from [employer] options. If intended option is not shown, [...] *Please review and pick correct strength-formulation from Medispan options. If intended option is [...] every 12 hours Objective: * Vitals: Assessment: * Assessment: 1. A llergic rhinitis due to pollen - J30.1 (Primary) 2 . O ther allergic rhinitis - J30.89 3 . A llergic rhinitis due to animal (cat) (dog) hair and dander - J30.81 4 . O ther chronic allergic conjunctivitis - H10.45 Plan: * Treatment: * Procedure Codes: 9 5117 IMMUNOTHERAPY INJECTIONS * Follow Up: 1 Week * Billing Information: * Visit Code: * Procedure Codes: 05282 IMMUNOTHERAPY INJECTIONS. * Sign off status: Completed true * Provider: Deya Curran MD Date: 0 11/01/2024 Generated for Mima mayorga/[employer]/Win on: 0 11/04/2024 02:56 AM CDT History and Physical Notes * HPI (History of Present Illness) Category Sub-Category Detail Notes Category Not es *Introduction The patient is here for scheduled immunotherapy. Please see the attached specialty form regarding the specifics of the administration of these vaccines. As per our protocol, they must undergo a screening health questionnaire (medication changes, reaction(s) to last immunotherapy dose(s), current health status, ACT (if appropriate), self-injectable epinephrine on patient(?) and peak flow (if appropriate)). Also, the patient must wait in our office for 30 minutes after receiving the vaccine(s). Furthermore, every patient must have an epinephrine pen (self-injectable) with them at the time of administration--and carry if for the following 1.5 hours after they leave our office. The patient must also have taken their antihistamine the day of the injection, preferably 2 hours prior. The consent form for SCIT (subcutaneous immunotherapy) is on file.
--- OUTSIDE RECORDS SUMMARY | 2024-11-04 02:56 | XMS_ITS | Clinical Summary ---
Author Organization [facility] Address [address] [place] [address] Care Team Providers Care Repair Department Supervisor Name Role Phone Hoang Gilbert MD Primary Care Provider [phone] Social History Tobacco Use Types Packs/Day Years Used Date Smoking Tobacco: Never Assessed Sex and Gender Information Value Date Recorded Sex Assigned at Not on file Legal Sex Male 6:45 PM CDT Gender Identity Not on file Sexual Orientation Not on file Plan of Treatment Health Maintenance Due Date Last Done Comments Colorectal Cancer Screening Colonoscopy (10 Years) 1970 Annual Physical 1974 Hepatitis C 1989 Hepatitis B Vaccines (1 of 3 - 19+ 3-dose series) 1990 COVID-19 Vaccine (2023-2 5 season) 2024 08/23/2021, 09/22/2020, 09/01/2020 DTaP, Tdap and Td Vaccines ( 2 - Td or Tdap) 09/10/2032 09/10/2022 Zoster Vaccines Completed 03/03/2023, 12/26/2022 Pneumococcal Vaccine: 50+ Years Completed 03/11/2023, 04/18/2019 Meningococcal B Vaccine Aged Out No l onger eligible based on patient's age to complete this topic Meningococcal Vaccine Aged Out No dina mukesh eligible based on patient's age to complete this topic RSV Immunizations Under 20 Months Aged Out No longer eligible b ased on patient's age to complete this topic Care Teams Repair Department Supervisor Relationship Specialty Start Date End Date Hoang Gilbert MD [address] [address] PCP - General FAMILY PRACTICE 03/31/23
--- OUTSIDE RECORDS SUMMARY | 2024-11-04 02:56 | XMS_ITS ---
Author Organization [facility] [place] ([address]) Address [address] [facility] [address] [place] [address] Care Team Providers Care Advertising Assistant Name Role Phone Hoang Gilbert MD Primary Care Provider Jada Thompson [phone] REASON FOR VISIT No Show Fee Encounters Encounter Location Date Provider Diagnosis [address] [address] 11/02/2024 Jada Sandra Plan Of Treatment Next Appt Details Provider Name:Alireza Curran , 11/28/2024 03:10:00 PM, [address] [facility], [address], [place], [address], Progress Notes * Romina LEVIOB:1970 (54 yo M)Acc No.[id number]:11/02/2024 Patient: Shaun GRANADOS :1970 A ge:54 Y S ex:Male Address:[address] [place], [address] * * Date:
--- OUTSIDE RECORDS SUMMARY | 2024-11-04 02:56 | XMS_ITS | Patient Health Record ---
Author Organization [facility] [place] [facility] [place] ([address]) Address [address] [facility] [address] [place] [address] Care Team Providers Care Machine Pecan Picker Name Role Phone Hoang Gilbert MD Primary Care Provider Unavailab le Jada Sandra Unavailable [phone] Alireza Curran Unavailable [phone] [employer], Provider Unavailable Unavailab le Allergies Allergen (clinical drug ingredient) Drug/Non Drug Allergy documented on EMR Reaction Allergy Type Onset Date Status fluticasone / vilanterol Breo Ellipta Anxiety Drug Allergy Active Lisinopril Cough/SOB Drug Allergy Active Results Component Value Reference Range Notes Spirometry Reviewed date:08/18/2024 03:21:02 PM Interpretation:Abnormal Performing Lab: Notes/Report: Abnormal SpiroPreBronchodilator_FVC 4.71 SpiroPostBronchodilator_FEF25_75 0 SpiroPreBronchodilator_FEF25_75 1.63 SpiroPreBronchodilator_FEV1 3.11 SpiroPrecentPredictionPost_FEF25_75 0 SpiroPrecentPredictionPost_FEV1 0 SpiroPrecentPredictionPost_FEV1_OVER_FVC 0 SpiroPrecentPredictionPost_FVC 0 SpiroPrecentPredictionPre_FEF25_75 43.2 SpiroPrecentPredictionPre_FEV1 79.1 SpiroPrecentPredictionPre_FEV1_OVER_FVC 83.3 SpiroPrecentPredictionPre_FVC 95 SpiroPredicted_FEF25_75 3.77 SpiroPreBronchodilator_FEV1_OVER_FVC 65.9 SpiroPreBronchodilator_PEF 9.28 SpiroPostBronchodilator_FVC 0 SpiroPostBronchodilator_FEV1 0 SpiroPostBronchodilator_FEV1_OVER_FVC 0 SpiroPostBronchodilator_PEF 0 SpiroPredicted_FVC 4.96 SpiroPredicted_FEV1 3.93 SpiroPredicted_FEV1_OVER_FVC 79.15 SpiroPredicted_PEF 8.98 Reason For Referral No Information Medications Medication SIG (Take, Route, Frequency, Duration) Notes Start Date End Date Status SIT (TRADITIONAL) variable per schedule SC per schedule for to be determined Active SIT (TRADITIONAL) VARIABLE PER SCHEDULE SC PER SCHEDULE for TO BE DETERMINED *Please review for potential replacement for e-prescription and drug interaction check* Not-Taking AZELASTINE HYDROCHLORIDE NASAL 137 mcg/inh 1-2 spray(s) intranasally 2 times a day for 30 day(s) Active Symbicort 160-4.5 MCG/ACT INHALE 2 PUFFS BY MOUTH TWICE DAILY for 90 Not-Taking Xyzal Allergy 24HR 5 MG 1 tablet in the evening Orally Once a day Active Budesonide-Formoterol Fumarate 160-4.5 MCG/ACT 2 puffs Inhalation twice a day for 90 days Active hydroCHLOROthiazide 25 MG 1 tab(s) orally once a day Not-Taking amLODIPine Besylate 10 MG 1 tab(s) orally once a day Active dilTIAZem HCl ER 120 MG 1 cap(s) orally every 12 hours Not-Taking Levalbuterol HCl 45 MCG/INH 2 PUFF(S) INHALED PER ASTHMA ACTION PLAN for 30 DAY(S) *Please review and pick correct strength-formul ation from [employer] options. If intended option is not shown, discontinue and re-order from Quick Search* Active Vitamin D3 125 MCG (5000 UT) as directed orally once a day for 30 day(s) Active BUDESONIDE-FORMOTEROL FUMARATE DIHYDRATE 160 MCG-4.5 MCG/INH [...] a day for 30 days 4 Not-Taking Auvi-Q 0.3 mg 0.3 mg intramuscularly once for 30 day(s) Not-Taking Xopenex HFA 45 MCG/ACT 2 puff(s) inhaled every 4 hours Not-Taking Triamterene-HCTZ 37.5-25 MG 1 tablet in the morning Orally Once a day Not-Taking VITAMIN D3 5000 intl units as directed orally once a day for 30 day(s) Not-Taking AMLODIPINE 10 mg 1 tab(s) orally once a day Not-Taking predniSONE 20 MG 4 tab(s) orally once a day for 5 day(s) Not-Taking LEVALBUTEROL 45 mcg/inh 2 puff(s) inhale d per asthma action plan for 30 day(s) Not-Taking Fluticasone Propionate 50 MCG/ACT 2 sprays intranasally once a day for 30 day(s) Not-Taking ZyrTEC Allergy 10 MG 1 tab(s) orally once a day Not-Taking XOPENEX HFA 45 mcg/inh 2 puff(s) inhaled every 4 hours Not-Taking Rosuvastatin Calcium 10 MG 1 tab(s) orally once a day Not-Taking MONTELUKAST SODIUM 10 mg 1 tab(s) orally once a day for 90 days Not-Taking Azelastine HCl 137 MCG/SPRAY 1-2 spray(s) intranasally 2 times a day for 30 day(s) Not-Taking ZYRTEC 10 mg 1 tab(s) orally once a day Not-Taking Symbicort 160-4.5 MCG/ACT INHALE 2 PUFFS BY MOUTH TWICE DAILY for 90 Not-Taking ALBUTEROL (EQV-PROVENTIL HFA) 90 mcg/inh 2 puff(s) inhaled per asthma action plan for 30 day(s) Not-Taking Wixela Inhub 100 MCG-50 MCG 1 INH INHALED 2 TIMES A DAY for 30 DAYS *Please review and pick correct strength-formul ation from [employer] options. If intended option is not shown, discontinue and re-order from Quick Search* 4 Not-Taking NASAL WASHES N/A as directed intranasally as needed for 30 Not-Taking predniSONE 20 MG 4 tab(s) orally once a day for 7 day(s) Not-Taking FLUTICASONE PROPIONATE 50 mcg/inh 2 sprays intranasally once a day for 30 day(s) Not-Taking Xyzal Allergy 24HR 5 MG 1 tab(s) orally once a day (in the evening) for 30 day(s) Not-Taking Immunizations Vaccine Route Administration Date Status Comme nts Pneumovax 23 IM Intramuscular 04/18/2019 Administered NOC Prevnar 20 Unknown 03/17/2023 Administered NOC Influenza-Afluria PFS Unknown 04/15/2021 Administered NOC Fluzone Quadrivalent Unknown 03/26/2018 Refused NOC Fluzone Quadrivalent Unknown 07/15/2018 Administered NOC Flucelevax Quadrivalent Unknown 05/28/2020 Refused NOC Flucelevax Quadrivalent Unknown 06/05/2020 Refused Influenza Unknown 05/27/2017 Administered Portal Information Fluzone, quadrivalent, preservative free Unknown 06/20/2020 Administered Flucelvax Unknown 06/14/2019 Administered Covid 19 (Pfizer) Unknown 09/01/2020 Administered Covid 19 (Pfizer) Unknown 09/22/2020 Administered Social History Tobacco Use: Social History Observation Description Date Details (start date - stop date) Former Smoker NA - NA Tobacco Control (Standard) Question Answer Notes Tobacco use: Former smoker How long has it been since you last smoked? Grea ter than 10 years Problems Problem Type SNOMED Code ICD Code Onset Dates Problem Status W/U Status Risk Notes Problem Shortness of breath (383816488) Shortness of breath (R06.02) Active confirmed Problem Wheezing (16238060) Wheezing (R06.2) Active confirmed Problem Vitamin D deficiency (19623823) Vitamin D deficiency, unspecified (E55.9) Active confirmed Problem Chronic allergic conjunctivitis (46574153) Other chronic allergic conjunctivitis (H10.45) Active confirmed Problem Allergic rhinitis caused by pollen (disorder) (34416835) Allergic rhinitis due to pollen (J30.1) Active confirmed Problem Allergic rhinitis caused by animal hair and dander (000567045234084) Allergic rhinitis due to animal (cat) (dog) hair and dander (J30.81) Active confirmed Problem Allergic rhinitis (32099750) Other allergic rhinitis (J30.89) Active confirmed Problem Chronic rhinitis (61156119) Chronic rhinitis (J31.0) Active confirmed Problem Hypertrophy of nasal turbinates (71905815) Hypertrophy of nasal turbinates (J34.3) Active confirmed Problem Cough (60102105) Cough (R05) Active confirmed Problem Allergic rhinitis caused by pollen (disorder) (01360913) Allergic rhinitis due to pollen (J30.1) Active confirmed Problem Allergic rhinitis caused by animal hair and dander (338027549595919) Allergic rhinitis due to animal (cat) (dog) hair and dander (J30.81) Active confirmed Problem Allergic rhinitis (57798014) Other allergic rhinitis (J30.89) Active confirmed Problem Uncomplicated moderate persistent asthma (710263711) Moderate persistent asthma, uncomplicated (J45.40) Active confirmed Problem Exacerbation of moderate persistent asthma (disorder) (788210634) Moderate persistent asthma with (acute) exacerbation (J45.41) Active confirmed Problem Acute severe exacerbation of severe persistent asthma (395298832) Severe persistent asthma with (acute) exacerbation (J45.51) Active confirmed Problem Chronic allergic conjunctivitis (38249665) Other chronic allergic conjunctivitis (H10.45) Active confirmed Problem Essential hypertension (29401037) Essential (primary) hypertension (I10) Active confirmed Problem Gastro-esophageal reflux disease without esophagitis (170463112) Gastro-esophageal reflux disease without esophagitis (K21.9) Active confirmed Problem Hypertensive crisis (024774336) Hypertensive crisis, unspecified (I16.9) Active confirmed Problem COVID-19 (683771386) COVID-19 (U07.1) Active confirmed Vital Signs Respiratory Rate 18 /min 04/14/2024 Oximetry 98 % 08/18/2024 Blood pressure diastolic 94 mm Hg 08/18/2024 Height 70.5 in 08/18/2024 Blood pressure systolic 151 mm Hg 08/18/2024 Weight 265.6 lbs 08/18/2024 BMI 37.57 kg/m2 08/18/2024 Encounters Encounter Location Date Provider Diagnosis [address] [address] 12/26/2023 Provider ZZ-Tiburcio Allergic rhinitis due to pollen J30.1 [facility] [address] [facility] [address] [place] [address] 11/16/2023 Alireza Curran Allergic rhinitis du e to pollen J30.1 ; Other allergic rhinitis J30.89 ; Allergic rhinitis due to animal (cat) (dog) hair and dander J30.81 and Other chronic allergic conjunctivitis H10.45 [facility] [address] [place] [phone] 12/16/2023 Alireza Magdy Allergic rhinitis du e to pollen J30.1 ; Other allergic rhinitis J30.89 ; Allergic rhinitis due to animal (cat) (dog) hair and dander J30.81 and Other chronic allergic conjunctivitis H10.45 [facility] [address] [place] [phone] 01/26/2024 Alireza Curran Allergic rhinitis du e to pollen J30.1 ; Other allergic rhinitis J30.89 ; Allergic rhinitis due to animal (cat) (dog) hair and dander J30.81 and Other chronic allergic conjunctivitis H10.45 [facility] [address] [place] [phone] 02/02/2024 Alireza Magdy Allergic rhinitis du e to pollen J30.1 ; Other allergic rhinitis J30.89 ; Allergic rhinitis due to animal (cat) (dog) hair and dander J30.81 and Other chronic allergic conjunctivitis H10.45 [facility] [address] [place] [phone] 02/11/2024 Jada Young Moderate persistent asthma, uncomplicated J45.40 ; Shortness of breath R06.02 ; Allergic rhinitis due to pollen J30.1 ; Allergic rhinitis due to animal (cat) (dog) hair and dander J30.81 ; Other allergic rhinitis J30.89 ; Gastro-esophageal reflux disease without esophagitis K21.9 and Essential (primary) hypertension I10 [facility] [address] [place] [phone] 04/14/2024 Jada Young Moderate persistent asthma, uncomplicated J45.40 ; Shortness of breath R06.02 ; Allergic rhinitis due to pollen J30.1 ; Allergic rhinitis due to animal (cat) (dog) hair and dander J30.81 ; Other allergic rhinitis J30.89 ; Gastro-esophageal reflux disease without esophagitis K21.9 and Essential (primary) hypertension I10 [facility] [address] [place] [phone] 04/18/2024 Alireza Curran Allergic rhinitis du e to pollen J30.1 ; Other allergic rhinitis J30.89 ; Allergic rhinitis due to animal (cat) (dog) hair and dander J30.81 and Other chronic allergic conjunctivitis H10.45 [facility] [address] [place] [phone] 04/27/2024 Alireza Curran Allergic rhinitis du e to pollen J30.1 ; Other allergic rhinitis J30.89 ; Allergic rhinitis due to animal (cat) (dog) hair and dander J30.81 and Other chronic allergic conjunctivitis H10.45 [facility] [address] [place] [phone] 06/07/2024 Alireza Curran Allergic rhinitis du e to pollen J30.1 ; Other allergic rhinitis J30.89 ; Allergic rhinitis due to animal (cat) (dog) hair and dander J30.81 and Other chronic allergic conjunctivitis H10.45 [facility] [address] [place] [phone] 07/11/2024 Alireza Curran Allergic rhinitis du e to pollen J30.1 ; Other allergic rhinitis J30.89 ; Allergic rhinitis due to animal (cat) (dog) hair and dander J30.81 and Other chronic allergic conjunctivitis H10.45 [facility] [address] [place] [phone] 08/18/2024 Jada Sandra Moderate persistent asthma, uncomplicated J45.40 ; Shortness of breath R06.02 ; Allergic rhinitis due to pollen J30.1 ; Allergic rhinitis due to animal (cat) (dog) hair and dander J30.81 ; Other allergic rhinitis J30.89 ; Gastro-esophageal reflux disease without esophagitis K21.9 and Essential (primary) hypertension I10 [facility] [address] [place] [phone] 09/27/2024 Alireza Curran Allergic rhinitis du e to pollen J30.1 ; Other allergic rhinitis J30.89 ; Allergic rhinitis due to animal (cat) (dog) hair and dander J30.81 and Other chronic allergic conjunctivitis H10.45 [facility] [address] [place] [phone] 10/20/2024 Jada Sandra [facility] [address] [facility] [address] [place] [address] 11/01/2024 Alireza Curran Allergic rhinitis du e to pollen J30.1 ; Other allergic rhinitis J30.89 ; Allergic rhinitis due to animal (cat) (dog) hair and dander J30.81 and Other chronic allergic conjunctivitis H10.45 [facility] [address] [place] [address] 11/02/2024 Jada Sandra [facility] [address] [place] [address] 01/21/2024 Jada Sandra [facility] [address] [facility] [place] [address] 04/14/2024 Jada Sandra Moderate persistent asthma, uncomplicated J45.40 Assessments Encounter Date Diagnosis (ICD Code) Assessment Notes Treatment Notes Treatment Clinical Notes Section Notes 11/16/2023 Allergic rhinitis due to pollen (ICD-10 - J30.1) 12/16/2023 Allergic rhinitis due to pollen (ICD-10 - J30.1) 01/26/2024 Allergic rhinitis due to pollen (ICD-10 - J30.1) 04/14/2024 Shortness of breath (ICD-10 - R06.02) As above with inspiratory symptoms which do not respond to BRANDIN initially. No longer followed by Dr. Queen and perform breathing exercises 04/14/2024 Moderate persistent asthma, uncomplicated (ICD-10 - J45.40) Shaun returns today doing well. No issues with his breathing. S/p evaluation with Dr. Queen with sigificant improvment in symptoms. Continues with VCD exercises and Symbicort. Off GERD meds he is eating better. -Spirometry preivously obstructed, today with normal FEV1, FVC, and FEV%. -He does have smoking history. Historically with prior +BD challenge by Dr. Neil of pulmonary with 26% change in FEV1 c/w asthma. May have ACOS with prior smoking history. -Currently holding Spiriva due to side effects. Doing well on Symbicort dosing 2 puffs QD due to lack of symptoms for the last year. However, insurance is no longer covering. Switched to Advair and he is having palpitations, thrush, and now BRANDIN use. Change to Dulera -will needa PA but needs MDI -Return in 3-6 months for E&M 08/18/2024 Shortness of breath (ICD-10 - R06.02) As above with inspiratory symptoms which do not respond to BRANDIN. typically will yawn. No longer followed by Dr. Queen and perform breathing exercises 08/18/2024 Moderate persistent asthma, uncomplicated (ICD-10 - J45.40) Shaun returns today doing well. No issues with his breathing. S/p evaluation with Dr. Queen with sigificant improvment in symptoms. Continues with VCD exercises and Symbicort. Off GERD meds he is eating better. -Spirometry last visit with normal FEV1, FVC, and FEV%. Today is obstructed. He is hesistant to go back to BID dosing of Symbicort but would like to return in a few months to recheck function. If he starts having symptoms I would recommend BID dosing before our appt -He does have smoking history. Historically with prior +BD challenge by Dr. Neil of pulmonary with 26% change in FEV1 c/w asthma. May have ACOS with prior smoking history. -Currently holding Spiriva due to side effects. Doing well on Symbicort dosing 2 puffs QD due to lack of symptoms for the last year. However, insurance is no longer covering. Switched to Advair and he is having palpitations, thrush, and now BRANDIN use. Did well with Dulera but not coverered -Return in 3-6 months for E&M 09/27/2024 Allergic rhinitis due to pollen (ICD-10 - J30.1) 11/01/2024 Allergic rhinitis due to pollen (ICD-10 - J30.1) 07/11/2024 Allergic rhinitis due to pollen (ICD-10 - J30.1) 06/07/2024 Allergic rhinitis due to pollen (ICD-10 - J30.1) 04/27/2024 Allergic rhinitis due to pollen (ICD-10 - J30.1) 04/14/2024 Moderate persistent asthma, uncomplicated (ICD-10 - J45.40) 02/11/2024 Shortness of breath (ICD-10 - R06.02) As above with inspiratory symptoms which do not respond to BRANDIN initially. No longer followed by Dr. Queen and perform breathing exercises 04/18/2024 Allergic rhinitis due to pollen (ICD-10 - J30.1) 02/11/2024 Moderate persistent asthma, uncomplicated (ICD-10 - J45.40) Shaun returns today doing well. No issues with his breathing. S/p evaluation with Dr. Queen with sigificant improvment in symptoms. Continues with VCD exercises and Symbicort. Off GERD meds he is eating better. -Spirometry preivously obstructed, today with normal FEV1, FVC, and FEV%. -He does have smoking history. Historically with prior +BD challenge by Dr. Neil of pulmonary with 26% change in FEV1 c/w asthma. May have ACOS with prior smoking history. -Currently holding Spiriva due to side effects. Doing well on off label Symbicort dosing 2 puffs QD due to lack of symptoms for the last year. Will try to use savings coupon -Return in 6 months for E&M 02/02/2024 Allergic rhinitis due to pollen (ICD-10 - J30.1) 12/26/2023 Allergic rhinitis due to pollen (ICD-10 - J30.1) 02/02/2024 Other allergic rhinitis (ICD-10 - J30.89) 04/18/2024 Other allergic rhinitis (ICD-10 - J30.89) 02/11/2024 Allergic rhinitis due to pollen (ICD-10 - J30.1) Shaun clearly suffers from atopic disease based upon our recent skin testing. Switched to cluster recently and tolerated without issues. AIE on hand. Dosing tolerated w/o large local rxns today. Continue monthly dosing, increasing frequency in peak seasons PRN 04/27/2024 Other allergic rhinitis (ICD-10 - J30.89) 06/07/2024 Other allergic rhinitis (ICD-10 - J30.89) 07/11/2024 Other allergic rhinitis (ICD-10 - J30.89) 11/01/2024 Other allergic rhinitis (ICD-10 - J30.89) 09/27/2024 Other allergic rhinitis (ICD-10 - J30.89) 08/18/2024 Allergic rhinitis due to pollen (ICD-10 - J30.1) Shaun clearly suffers from atopic disease based upon our recent skin testing. Switched to cluster recently and tolerated without issues. AIE on hand. Dosing tolerated w/o large local rxns today. Continue monthly dosing, increasing frequency in peak seasons PRN 04/14/2024 Allergic rhinitis due to pollen (ICD-10 - J30.1) Shaun clearly suffers from atopic disease based upon our recent skin testing. Switched to cluster recently and tolerated without issues. AIE on hand. Dosing tolerated w/o large local rxns today. Continue monthly dosing, increasing frequency in peak seasons PRN 01/26/2024 Other allergic rhinitis (ICD-10 - J30.89) 12/16/2023 Other allergic rhinitis (ICD-10 - J30.89) 11/16/2023 Other allergic rhinitis (ICD-10 - J30.89) 11/16/2023 Allergic rhinitis due to animal (cat) (dog) hair and dander (ICD-10 - J30.81) 12/16/2023 Allergic rhinitis due to animal (cat) (dog) hair and dander (ICD-10 - J30.81) 01/26/2024 Allergic rhinitis due to animal (cat) (dog) hair and dander (ICD-10 - J30.81) 04/14/2024 Allergic rhinitis due to animal (cat) (dog) hair and dander (ICD-10 - J30.81) Follow allergen avoidance, meds and continue SCIT as an adjunctive treatment to current regimen 08/18/2024 Allergic rhinitis due to animal (cat) (dog) hair and dander (ICD-10 - J30.81) Follow allergen avoidance, meds and continue SCIT as an adjunctive treatment to current regimen 11/01/2024 Allergic rhinitis due to animal (cat) (dog) hair and dander (ICD-10 - J30.81) 09/27/2024 Allergic rhinitis due to animal (cat) (dog) hair and dander (ICD-10 - J30.81) 07/11/2024 Allergic rhinitis due to animal (cat) (dog) hair and dander (ICD-10 - J30.81) 06/07/2024 Allergic rhinitis due to animal (cat) (dog) hair and dander (ICD-10 - J30.81) 04/27/2024 Allergic rhinitis due to animal (cat) (dog) hair and dander (ICD-10 - J30.81) 02/11/2024 Allergic rhinitis due to animal (cat) (dog) hair and dander (ICD-10 - J30.81) Follow allergen avoidance, meds and continue SCIT as an adjunctive treatment to current regimen 02/02/2024 Allergic rhinitis due to animal (cat) (dog) hair and dander (ICD-10 - J30.81) 04/18/2024 Allergic rhinitis due to animal (cat) (dog) hair and dander (ICD-10 - J30.81) 02/11/2024 Other allergic rhinitis (ICD-10 - J30.89) Follow allergen avoidance, meds and continue SCIT as an adjunctive treatment to current regimen 04/18/2024 Other chronic allergic conjunctivitis (ICD-10 - H10.45) 02/02/2024 Other chronic allergic conjunctivitis (ICD-10 - H10.45) 04/27/2024 Other chronic allergic conjunctivitis (ICD-10 - H10.45) 06/07/2024 Other chronic allergic conjunctivitis (ICD-10 - H10.45) 07/11/2024 Other chronic allergic conjunctivitis (ICD-10 - H10.45) 09/27/2024 Other chronic allergic conjunctivitis (ICD-10 - H10.45) 11/01/2024 Other chronic allergic conjunctivitis (ICD-10 - H10.45) 08/18/2024 Other allergic rhinitis (ICD-10 - J30.89) Follow allergen avoidance, meds and continue SCIT as an adjunctive treatment to current regimen 04/14/2024 Other allergic rhinitis (ICD-10 - J30.89) Follow allergen avoidance, meds and continue SCIT as an adjunctive treatment to current regimen 01/26/2024 Other chronic allergic conjunctivitis (ICD-10 - H10.45) 12/16/2023 Other chronic allergic conjunctivitis (ICD-10 - H10.45) 11/16/2023 Other chronic allergic conjunctivitis (ICD-10 - H10.45) 04/14/2024 Gastro-esophageal reflux disease without esophagitis (ICD-10 - K21.9) Doing well off meds, focusing on diet 08/18/2024 Gastro-esophageal reflux disease without esophagitis (ICD-10 - K21.9) Doing well off meds, focusing on diet, clear trigger to asthma 02/11/2024 Gastro-esophageal reflux disease without esophagitis (ICD-10 - K21.9) Doing well off meds, focusing on diet 02/11/2024 Essential (primary) hypertension (ICD-10 - I10) Shaun has had elevated blood pressure readings since he has established. Even being sent to ER for HTN emergency his first visit. Dr. Gilbert continues to follow. BP elevated today without symptoms of urgency or emergency. Continue serial checks and follow-up with PCP, Consider avoiding beta-blockers if antihypertensives are needed given their relative contraindication in the setting of allergen immunotherapy 08/18/2024 Essential (primary) hypertension (ICD-10 - I10) Shaun has had elevated blood pressure readings since he has established. Even being sent to ER for HTN emergency his first visit. Dr. Gilbert continues to follow. BP elevated today without symptoms of urgency or emergency. Continue serial checks and follow-up with PCP, Consider avoiding beta-blockers if antihypertensives are needed given their relative contraindication in the setting of allergen immunotherapy 04/14/2024 Essential (primary) hypertension (ICD-10 - I10) Shaun has had elevated blood pressure readings since he has established. Even being sent to ER for HTN emergency his first visit. Dr. Gilbert continues to follow. BP elevated today without symptoms of urgency or emergency. Continue serial checks and follow-up with PCP, Consider avoiding beta-blockers if antihypertensives are needed given their relative contraindication in the setting of allergen immunotherapy 02/11/2024 Other 04/14/2024 Other 08/18/2024 Other Plan Of Treatment Pending Test Test Name Order Date Spirometry 10/20/2024 VITAMIN D, 25-OH, TOTAL, [place] 07/25/2019 Next Appt Details Provider Name:Alireza Curran , 11/28/2024 03:10:00 PM, [address] [facility], [address], [place], [address], Insurance Providers Payer Name Payer Address Payer Phone Subscriber Number Group Number Insured Name Patient Relationship to Insured Coverage Start Date Coverage End Date [employer] [address] [place] [address] [phone] [id number] Shaun Mcdermott Self - patient is the insured Medical (General) History Medical History History ICD Code Gastro-esophageal reflux disease without esophagitis Hypertensive crisis, unspecified Essential (primary) hypertension Chronic rhinitis Hypertrophy of nasal turbinates Wheezing Shortness of breath Cough Left Hand Carpal Tunnal Cholesterol Surgical History Surgery Date(Month/Year) right carpal tunnel 03/26/1998 left thumb ligament 03/30/2007 Left Carpal Tunnel Repair 12/2018 Shoulder surgery 03/2024
--- OUTSIDE RECORDS SUMMARY | 2024-11-04 02:56 | XMS_ITS | Encounter Summary ---
Author Organization [facility] Facility Care Team Providers Care Insurance Commissioner Name Role Phone Hoang Gilbert MD Primary Care Provider [phone] Hoang Gilbert MD Primary Care Provider Hoang Gilbert MD Unavailable [phone] Hoang Gilbert MD Primary Care Provider [phone] Encounter Details Date Type Department Care Team (Latest Contact Info) Description 12/21/2015 Orders Only [facility] CLINCONV ProviderHeidi MD [address] [place] [id number] Social History Tobacco Use Types Packs/Day Years Used Date Smoking Tobacco: Former Sex and Gender Information Value Date Recorded Sex Assigned at Not on file Legal Sex Male 11:01 AM REAL ESTATE TRANSACTION COORDINATOR Gender Identity Male 06/01/2020 11:20 AM REAL ESTATE TRANSACTION COORDINATOR Sexual Orientation Straight 06/01/2020 11 :20 AM REAL ESTATE TRANSACTION COORDINATOR documented as of this encounter Plan of Treatment Not on file documented as of this encounter Procedures Procedure Name Priority Date/Time Associated Diagnosis Comments CARDIOLOGY REPORT 01/15/2016 12: 00 AM CDT documented in this encounter Results * CARDIOLOGY REPORT (01/15/2016 12:00 AM CDT) Anatomical Region Laterality Modality Other Narrative 01/15/2016 12:00 AM CDT Ordered by an unspecified provider. Historical Provider [facility] LORI ALEJANDRO Final Result documented in this encounter Visit Diagnoses Not on filedocumented in this encounter Care Teams Insurance Commissioner Relationship Specialty Start Date End Date Hoang Gilbert MD PCP - General Family Medicine 11/24/18 12/30/18 Hoang Gilbert MD PCP - General 12/31/18 03/18/23 Hoang Gilbert MD PCP - General Family Medicine 03/19/23 Hoang Gilbert MD Family Medicine 12/31/18 03/18/23 documented as of this encounter
--- OUTSIDE RECORDS SUMMARY | 2024-11-04 02:57 | XMS_ITS | Encounter Summary ---
Author Organization [facility] Facility Care Team Providers Care Marketing Forecaster Name Role Phone Hoang Gilbert MD Primary Care Provider [phone] Hoang Gilbert MD Primary Care Provider [phone] Hoang Gilbert MD Unavailable [phone] Hoang Gilbert MD Primary Care Provider [phone] Encounter Details Date Type Department Care Team (Latest Contact Info) Description 03/26/2018 Orders Only [facility] CLINCONV ProviderHeidi MD [address] [place] [address] Social History Tobacco Use Types Packs/Day Years Used Date Smoking Tobacco: Former Sex and Gender Information Value Date Recorded Sex Assigned at Not on file Legal Sex Male 11:01 AM METEOROLOGICAL AIDE Gender Identity Male 06/01/2020 11:20 AM METEOROLOGICAL AIDE Sexual Orientation Straight 06/01/2020 11 :20 AM METEOROLOGICAL AIDE documented as of this encounter Plan of Treatment Not on file documented as of this encounter Procedures Procedure Name Priority Date/Time Associated Diagnosis Comments CARDIOLOGY REPORT 03/29/2018 12: 00 AM CDT documented in this encounter Results * CARDIOLOGY REPORT (03/29/2018 12:00 AM CDT) Anatomical Region Laterality Modality Other Narrative 03/29/2018 12:00 AM CDT Ordered by an unspecified provider. Historical Provider [facility] LORI ALEJANDRO Final Result documented in this encounter Visit Diagnoses Not on filedocumented in this encounter Care Teams Marketing Forecaster Relationship Specialty Start Date End Date Hoang Gilbert MD PCP - General Family Medicine 11/24/18 12/30/18 Hoang Gilbert MD PCP - General 12/31/18 03/18/23 Hoang Gilbert MD PCP - General Family Medicine 03/19/23 Hoang Gilbert MD Family Medicine 12/31/18 03/18/23 documented as of this encounter
--- OUTSIDE RECORDS SUMMARY | 2024-11-04 02:57 | XMS_ITS | Clinical Summary ---
Author Organization [facility] Address [address] [place] [address] Phone Care Team Providers Care Post Office Clerk Name Role Phone Hoang Gilbert MD Primary Care Provider [phone] Allergies Active Allergy Reactions Criticality Noted Date Comments Fluticasone Furoate-Vilanterol Anxiety Low 03/30/2018 Lisinopril Shortness of Breath/Wheezing High 03/30/2018 Medications hydroCHLOROthiaz savannah 25 mg tablet Take 25 mg by mouth daily. Active raNITIdine (ZANTAC) 300 mg tablet Take 300 mg by mouth daily at bedtime. Active montelukast (SINGULAIR) 10 mg tablet Take 10 mg by mouth daily at bedtime. Active cloNIDine HCl (CATAPRES) 0.1 mg tablet Take 0.1 mg by mouth 2 times daily. Active Active Problems Problem Noted Date Diagnosed Date Lightheaded Shortness of breath Social History Tobacco Use Types Packs/Day Years Used Date Smoking Tobacco: Former Smokeless Tobacco: Never Alcohol Use Standard Drinks/Week Comments Yes 0 (1 standard drink = 0.6 oz pur e alcohol) socially Sex and Gender Information Value Date Recorded Sex Assigned at Not on file Legal Sex Male 10:49 AM CDT Gender Identity Not on file Sexual Orientation Not on file Last Filed Vital Signs Vital Sign Reading Time Taken Comments Blood Pressure 132/86 03/31/2018 12:00 PM CDT Pulse 72 03/31/2018 12:00 PM CDT Temperature 36.8 C (98.2 F) 03/31/2018 12:00 PM CDT Respiratory Rate 18 03/31/2018 12:00 PM CDT Oxygen Saturation 98% 03/31/2018 12:00 PM CDT Inhaled Oxygen Concentration - - Weight 109.8 kg (242 lb) 03/30/2018 11:13 AM CDT Height 180.3 cm (5' 11 ) 03/30/2018 11:13 AM CDT Body Mass Index 33.75 03/30/2018 11:13 AM CDT Plan of Treatment Health Maintenance Due Date Last Done Comments DTAP/TDAP/TD VACCINES (1 - Tdap) 1990 HEPATITIS B VACCINES (1 of 3 - 19+ 3-dose series) 07/1989 COLORECTAL SCREENING 2016 Colorectal Cancer Screening 2016 FIT-DNA Q 3 years 2016 FIT/FOBT Q 1 year 2016 Flex Sig/CT Colonography Q 5 years 2016 ZOSTER VACCINE (1 of 2) 2021 INFLUENZA VACCINE (#1) [address] BLUE ACCESS CHOICE Care Teams Post Office Clerk Relationship Specialty Start Date End Date Hoang Gilbert MD PCP - General Family Practice 03/30/18
--- NOTE | 2024-11-04 03:10 | PC.NURSE ---
eye kit at bedside for edp assessment.
--- NOTE | 2024-11-04 03:30 | PC.NURSE ---
edp vickych at bedside for assessment and eye exam
--- NOTE | 2024-11-04 03:40 | ED.GENADULT ---
HPI - General Adult General Chief complaint: Eye Problems Stated complaint: L eye injury Time Seen by Provider: 11/04/24 03:10 History of Present Illness HPI narrative: This is a 54-year-old male presenting with left eye pain. 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 He now has pain foreign body sensation in his left eye. Says it feels like a corneal abrasion which he has had in the past. No other injuries. Patient does no wear contacts. Related Data Home Medications ?Medication ?Instructions ?Recorded ?Confirmed ?Last Taken ?Type amlodipine 10 mg tablet 10 mg PO DAILY 12/07/20 12/07/20 Unknown History budesonide-formoterol HFA 160 1 inh inhalation DIRECTED 12/07/20 12/07/20 Unknown History mcg-4.5 mcg/actuation aerosol inhaler (Symbicort) famotidine 40 mg tablet 40 mg PO DAILY 12/07/20 12/07/20 Unknown History indapamide 2.5 mg tablet 2.5 mg PO DAILY 12/07/20 12/07/20 Unknown History lorazepam 0.5 mg tablet 0.5 mg PO DIRECTED 12/07/20 12/07/20 Unknown History montelukast 10 mg tablet 10 mg PO DAILY 12/07/20 12/07/20 Unknown History rosuvastatin 10 mg tablet 10 mg PO DAILY 12/07/20 12/07/20 Unknown History Allergies Allergy/AdvReac Type Severity Reaction Status Date / Time fluticasone furoate (From Allergy Difficulty Verified 11/04/24 02:54 Breo Ellipta) Breathing lisinopril Allergy Swelling Verified 11/04/24 02:54 of Lip/Tongue/Throat vilanterol (From Breo Allergy Difficulty Verified 11/04/24 02:54 Ellipta) Breathing PMFSH Past Medical History Medical History Hypercholesterolemia GERD (gastroesophageal reflux disease) Hypertension History of COVID-19 Asthma Exam Narrative: APPEARANCE: No apparent distress. Head: atraumatic. EYES: EOMI, pupils equal and reactive fluorescein stain showed a corneal abrasion over the left cornea, no charly sign. Visual acuity per nursing notes. NOSE: Atraumatic NECK: Trachea midline RESPIRATORY: No increased rate of breathing CARDIOVASCULAR: RRR, ABDOMINAL: Non-distended MUSCULOSKELETAl: No obvious deformities NEURO: Alert. Moving 4/4 extremities SKIN:: Warm, dry. Normal color PSYCHIATRIC: Normal affect Course Vital Signs Vital signs: Vital Signs Temperature 98.0 F 11/04/24 03:06 Pulse Rate 84 11/04/24 03:06 Respiratory Rate 16 11/04/24 03:06 Blood Pressure 180/98 H 11/04/24 03:06 Pulse Oximetry 97 11/04/24 03:06 Oxygen Delivery Room Air 11/04/24 03:06 Temperature 98.0 F 11/04/24 03:06 Pulse Rate 84 11/04/24 03:06 Respiratory Rate 16 11/04/24 03:06 Blood Pressure 180/98 H 11/04/24 03:06 Pulse Oximetry 97 11/04/24 03:06 Oxygen Delivery Room Air 11/04/24 03:06 Medical Decision Making MDM Narrative Medical decision making narrative: -Course: 54-year-old male presenting with left eye pain after being jumped on by his dog. Fluorescein staining shows a corneal abrasion. No Charly sign. Patient be discharged with antibiotic eyedrops. Patient has an eye doctor to follow-up with. He will call him 1st thing tomorrow morning to arrange 24 hour follow-up. -DDX includes but is not limited to: Corneal abrasion, ruptured globe, scleral abrasion Vital Signs Vital Signs: Vital Signs Temperature 98.0 F 11/04/24 03:06 Pulse Rate 84 11/04/24 03:06 Respiratory Rate 16 11/04/24 03:06 Blood Pressure 180/98 H 11/04/24 03:06 Pulse Oximetry 97 11/04/24 03:06 Oxygen Delivery Room Air 11/04/24 03:06 Temperature 98.0 F 11/04/24 03:06 Pulse Rate 84 11/04/24 03:06 Respiratory Rate 16 11/04/24 03:06 Blood Pressure 180/98 H 11/04/24 03:06 Pulse Oximetry 97 11/04/24 03:06 Oxygen Delivery Room Air 11/04/24 03:06 Discharge Plan Discharge Clinical Impression: Corneal abrasion Patient Disposition: Home Condition: Stable Instructions: Antibiotic Form, Corneal Abrasion (DC) Additional Instructions: You were seen in the emergency department for a corneal abrasion. Please take the antibiotic eyedrops as instructed. Use Motrin Tylenol for pain. Please follow-up with your senior net application developer within 24 hours. Return if you develop severe pain or loss of vision. Patient Language: Japanese Prescriptions: New ofloxacin [Ocuflox] 0.3 % drops See Rx Instructions .ROUTE .COMPLEX Qty: 5 0RF Rx Instructions: put 1-2 drps into affected eye(s) every 2-4 h x 2 days, then 1-2 drps 4 times/day days 3-7 No Action indapamide 2.5 mg tablet 2.5 mg PO DAILY famotidine 40 mg tablet 40 mg PO DAILY lorazepam 0.5 mg tablet 0.5 mg PO DIRECTED amlodipine 10 mg tablet 10 mg PO DAILY montelukast 10 mg tablet 10 mg PO DAILY rosuvastatin 10 mg tablet 10 mg PO DAILY budesonide-formoterol [Symbicort] 160-4.5 mcg/actuation HFA aerosol inhaler 1 inh inhalation DIRECTED Follow-up/Referrals: Ofelia,Hoang Falk MD [Primary Care Provider] -
--- OUTSIDE RECORDS SUMMARY | 2024-11-04 03:43 | XMS_ITS | Referral Summary ---
Author Organization [facility] Address [address] [place] [id number] Care Team Providers Care Plastics Engineering Teacher Name Role Phone Hoang Gilbert MD Primary Care Provider [phone] Encounters Date Type Department Care Team Description 08/15/2024 3:30 PM CONTROL ROOM SUPERVISOR Office Visit [facility] Family Medicine at [address] [place] [address] Hoang Gilbert MD Annual physical exam (Primary Dx); Hypogonadism in male; Hyperlipidemia, unspecified hyperlipidemia type; Benign prostatic hyperplasia with urinary frequency from Last 3 Months Allergies Active Allergy Reactions Criticality Noted Date Comments Fluticasone Furoate-Vilanterol Anxiety Low 11/29/2018 Anxiety increased blood pressure Lisinopril Cough,Shortness of breath High 11/29/2018 shortness of breath Olmesartan Shortness of breath High 11/29/2018 shortness of breath Tiotropium [place] Shortness of breath High 11/04/19 20 Vilanterol Unknown Low 06/04/2019 Elevated BP Medications PROAIR HFA 90 mcg/actuation inhaler Inhale 1 puff as needed for wheezing or shortness of breath 9 Active Symbicort 160-4.5 mcg/actuation inhalerIndicatio ns:Acute Asthma Attack,Maintenan ce Therapy for Asthma Inhale 2 puffs early childhood lead teacher before breakfast 0 Active LORazepam (ATIVAN) 0.5 mg tablet Take 1 tablet (0.5 mg total) by mouth every 8 (eight) hours as needed for anxiety 30 tablet 1 Active levocetirizine (XYZAL) 5 mg tabletIndication s:Allergic Rhinitis Take 1 tablet (5 mg total) by mouth as needed for allergies Active multivitamin tabletIndication s:Vitamin Deficiency Prevention Take 1 tablet by mouth early childhood lead teacher before breakfast Active ascorbic acid (CHRISTOPHER-C ORAL)Indications :health Take 1 tablet by mouth early childhood lead teacher before breakfast Active vitamin D3-vitamin K2 25 mcg (1,000 unit)-90 mcg tablet,disintegr atingIndications :health Take 1 tablet by mouth early childhood lead teacher before breakfast Active magnesium gluconate 200 mg tabletIndication s:hypomagnesemia Take 1 tablet (200 mg total) by mouth early childhood lead teacher before breakfast Active creatinine, bulk, 100 % powderIndication s:health Take 1 Dose by mouth early childhood lead teacher before breakfast Active food supplemt, lactose-reduced liquidIndication s:health Take 1 Dose by mouth early childhood lead teacher before breakfast EEA Active herbal drugs tabletIndication [...] (05/28/2022): Added automatically from request for surgery [id number] Body mass index 40.0-44.9, adult ([facility]) 03/12 Paradoxical vocal fold motion disorder Assessment & Plan (02/12/2021 4:46 PM CDT): I have recommended laryngeal control therapy here at the [facility] in order to [...] on file Legal Sex Male 11:01 AM CONTROL ROOM SUPERVISOR Gender Identity Male 06/01/2020 11:20 AM CONTROL ROOM SUPERVISOR Sexual Orientation Straight 06/01/2020 11 :20 AM CONTROL ROOM SUPERVISOR Last Filed Vital Signs Vital Sign Reading Time Taken Comments Blood Pressure 130/80 08/15/2024 3:25 PM CONTROL ROOM SUPERVISOR Pulse 90 08/15/2024 3:25 PM CONTROL ROOM SUPERVISOR Temperature 37 C (98.6 F) 08/15/2024 3:25 PM CONTROL ROOM SUPERVISOR Respiratory Rate 15 03/21/2024 11:1 0 AM CDT Oxygen Saturation 94% 08/15/2024 3:25 PM CONTROL ROOM SUPERVISOR Inhaled Oxygen Concentration - - Weight 119.9 kg (264 lb 4.8 oz) 08/15/2024 3:25 PM CONTROL ROOM SUPERVISOR Height 180.3 cm (5' 11 ) 08/15/2024 3:25 PM CONTROL ROOM SUPERVISOR Body Mass Index 36.86 08/15/2024 3:25 PM CONTROL ROOM SUPERVISOR Plan of Treatment Not on file Medical Devices Implanted Type Area Bowling Ball Grader Device Identifier Shelf Expiration Date Model / Serial / Lot [employer] Hand Coremaker Large Eyelet Pectoralis Button Fixation Latex Free [id number]-2267 - [id number] Implanted:Qty: 1 on 03/21/2024 by Yash Meng MD at [facility] Left: Shoulder [employer] 10/10/2028 AR-2267 / / [id number] Procedures Procedure Name Priority Date/Time Associated Diagnosis Comments PSA SCREEN Routine 02/05/2024 7:17 AM CDT Benign prostatic hyperplasia with urinary frequency COLONOSCOPY 06/20/2022 10:05 AM CONTROL ROOM SUPERVISOR from Last 3 Months or Most Recently Relevant to Health Maintenance Results * PSA screen (02/05/2024 7:17 AM CDT) PSA 0.99 < OR = 4.00 ng/mL [facility] Comment: The total PSA value from this assay system is standardized against the WHO standard. The test result will be approximately 20% lower when compared to the equimolar-standardized total PSA (Jelena Superior). Comparison of serial PSA results should be [...] LAB BLOOD ORDERABLES Final Re sult [facility] [id number] [id number] * COLONOSCOPY (06/20/2022 10:05 AM CONTROL ROOM SUPERVISOR) Anatomical Region Laterality Modality Other Narrative Procedure Note George Jaimes MD - 06/20/2022 10:05 AM CST [facility] Patient Name: Shaun Mcdermott Procedure Date: 06/20/2022 10:05 AM Date of : 1970 Admit Type: Outpatient Age: 52 Gender: Male Note Status: Finalized Attending MD: George Jaimes M.D. Procedure Date: 06/20/2022 Procedure: Colonoscopy Indications: Screening for colorectal malignant neoplasm, Thisis the patient's first colonoscopy Providers: George Jaimes M.D., Yarelis Andres, COIL CONNECTOR (Anesthesia Staff), Sylvia Schultz RN, Vipul Ortega, Realty Specialist Referring MD: Hoang Gilbert M.D. Medicines: Monitored [...] by the physician, the nurse and the anthropological linguist in the procedure room. Mental Status Examination: [...] pathology results. Procedure Code(s): --- Professional --- 13791, Colonoscopy, flexible; with removal of tumor(s), polyp(s), or other lesion(s) by snare technique 19328, 59, Colonoscopy, flexible; with biopsy,single or multiple Diagnosis Code(s): --- Professional --- Z12.11, Encounter for screening for malignantneoplasm of colon D12.4, Benign neoplasm of descending colon D12.7, Benign neoplasm of rectosigmoid junction CPT copyright 2020 [employer]. All rights reserved. The codes documented in this report are preliminary and upon inspector receiving reviewmay be revised to meet current compliance requirements. Electronically signed by George Jaimes M.D. Ivon RamirezD. 06/20/2022 10:55:42 AM Number of Addenda: 0 Note Initiated On: 06/20/2022 10:05 AM George Jaimes MD ENDOSCOPY PROCEDURES Fi nal Result from Last 3 Months or Most Recently Relevant to Health Maintenance Insurance [employer] English ACCESS CHOICE [employer] ACCESS CHOICE ANTHEM ACCESS CHOICE Care Teams Plastics Engineering Teacher Relationship Specialty Start Date End Date Hoang Gilbert MD PCP - General Family Medicine 03/19/23
--- OUTSIDE RECORDS SUMMARY | 2024-11-04 03:43 | XMS_ITS | Encounter Summary ---
Author Organization [facility] Facility Care Team Providers Care Systems Mechanic Name Role Phone Hoang Gilbert MD Primary Care Provider [phone] Hoang Gilbert MD Primary Care Provider [phone] Hoang Gilbert MD Unavailable [phone] Hoang Gilbert MD Primary Care Provider [phone] Encounter Details Date Type Department Care Team (Latest Contact Info) Description 03/26/2018 Orders Only [facility] CLINCONV ProviderHeidi MD [address] [place] [address] Social History Tobacco Use Types Packs/Day Years Used Date Smoking Tobacco: Former Sex and Gender Information Value Date Recorded Sex Assigned at Not on file Legal Sex Male 11:01 AM WELDER MANUFACTURE Gender Identity Male 06/01/2020 11:20 AM WELDER MANUFACTURE Sexual Orientation Straight 06/01/2020 11 :20 AM WELDER MANUFACTURE documented as of this encounter Plan of [...] on filedocumented in this encounter Care Teams Systems Mechanic Relationship Specialty Start Date End Date Hoang Gilbert MD PCP - General Family Medicine 11/24/18 12/30/18 Hoang Gilbert MD PCP - General 12/31/18 03/18/23 Hoang Gilbert MD PCP - General Family Medicine 03/19/23 Hoang Gilbert MD Family Medicine 12/31/18 03/18/23 documented as of this encounter
--- OUTSIDE RECORDS SUMMARY | 2024-11-04 03:43 | XMS_ITS | Clinical Summary ---
Author Organization [facility] [place] Address [address] [place] [address] Care Team Providers Care Railway Track Worker Name Role Phone Hoang Gilbert MD Primary Care Provider [phone] Allergies Active Allergy Reactions Criticality Noted Date Comments Fluticasone Furoate-Vilanterol Anxiety Low 11/29/2018 Anxiety increased blood pressure Lisinopril Cough,Shortness of breath High 11/29/2018 shortness of breath Olmesartan Shortness of breath High 11/29/2018 shortness of breath Tiotropium [place] Shortness of breath High 11/04/19 20 Vilanterol Unknown Low 06/04/2019 Elevated BP Medications PROAIR HFA 90 mcg/actuation inhaler Inhale 1 puff as needed for wheezing or shortness of breath 9 Active Symbicort 160-4.5 mcg/actuation inhalerIndicatio ns:Acute Asthma Attack,Maintenan ce Therapy for Asthma Inhale 2 puffs gage maker before breakfast 0 Active LORazepam (ATIVAN) 0.5 mg tablet Take 1 tablet (0.5 mg total) by mouth every 8 (eight) hours as needed for anxiety 30 tablet 1 Active levocetirizine (XYZAL) 5 mg tabletIndication s:Allergic Rhinitis Take 1 tablet (5 mg total) by mouth as needed for allergies Active multivitamin tabletIndication s:Vitamin Deficiency Prevention Take 1 tablet by mouth gage maker before breakfast Active ascorbic acid (CHRISTOPHER-C ORAL)Indications :health Take 1 tablet by mouth gage maker before breakfast Active vitamin D3-vitamin K2 25 mcg (1,000 unit)-90 mcg tablet,disintegr atingIndications :health Take 1 tablet by mouth gage maker before breakfast Active magnesium gluconate 200 mg tabletIndication s:hypomagnesemia Take 1 tablet (200 mg total) by mouth gage maker before breakfast Active creatinine, bulk, 100 % powderIndication s:health Take 1 Dose by mouth gage maker before breakfast Active food supplemt, lactose-reduced liquidIndication s:health Take 1 Dose by mouth gage maker before breakfast EEA Active herbal drugs tabletIndication [...] (05/28/2022): Added automatically from request for surgery [id number] Body mass index 40.0-44.9, adult ([facility]) 03/12 Paradoxical vocal fold motion disorder Assessment & Plan (02/12/2021 4:46 PM CDT): I have recommended laryngeal control therapy here at the [facility] in order [...] Department Care Team Description 08/15/2024 3:30 PM NEONATAL SURGEON Office Visit [facility] Family Medicine at [address] [place] [address] Hoang Gilbert MD Annual physical [...] on file Legal Sex Male 11:01 AM NEONATAL SURGEON Gender Identity Male 06/01/2020 11:20 AM NEONATAL SURGEON Sexual Orientation Straight 06/01/2020 11 :20 AM NEONATAL SURGEON Obstetrics History Last Filed Vital Signs Vital Sign Reading Time Taken Comments Blood Pressure 130/80 08/15/2024 3:25 PM NEONATAL SURGEON Pulse 90 08/15/2024 3:25 PM NEONATAL SURGEON Temperature 37 C (98.6 F) 08/15/2024 3:25 PM NEONATAL SURGEON Respiratory Rate 15 03/21/2024 11:1 0 AM CDT Oxygen Saturation 94% 08/15/2024 3:25 PM NEONATAL SURGEON Inhaled Oxygen Concentration - - Weight 119.9 kg (264 lb 4.8 oz) 08/15/2024 3:25 PM NEONATAL SURGEON Height 180.3 cm (5' 11 ) 08/15/2024 3:25 PM NEONATAL SURGEON Body Mass Index 36.86 08/15/2024 3:25 PM NEONATAL SURGEON Plan of Treatment Health Maintenance Due Date [...] history exists Medical Devices Implanted Type Area Senior Fire Protection Engineer Device Identifier Shelf Expiration Date Model / Serial / Lot [employer] Mini Bar Attendant Large Eyelet Pectoralis Button Fixation Latex Free [id number]-2267 - [id number] Implanted:Qty: 1 on 03/21/2024 by Yash Meng MD at [facility] Left: Shoulder [employer] 10/10/2028 AR-2267 / / [id number] Procedures Procedure Name Priority Date/Time Associated Diagnosis Comments PSA SCREEN Routine 02/05/2024 7:17 AM CDT Benign prostatic hyperplasia with urinary frequency COLONOSCOPY 06/20/2022 10:05 AM NEONATAL SURGEON from Last 3 Months or Most Recently Relevant to Health Maintenance Results * PSA screen (02/05/2024 7:17 AM CDT) PSA 0.99 < OR = 4.00 ng/mL [facility] Comment: The total PSA value from this assay system is standardized against the WHO standard. The test result will be approximately 20% lower when compared to the equimolar-standardized total PSA ([facility] [place]). Comparison of serial PSA results should be [...] MD LAB BLOOD ORDERABLES Final Re sult [facility] [address] [facility] [address] * COLONOSCOPY (06/20/2022 10:05 AM NEONATAL SURGEON) Anatomical Region Laterality Modality Other Narrative Procedure Note George Jaimes MD - 06/20/2022 10:[address] [facility] Patient Name: Shaun Mcdermott Procedure Date: 06/20/2022 10:05 AM Date of : 1970 Admit Type: Outpatient Age: 52 Gender: Male Note Status: Finalized Attending MD: George Jaimes M.D. Procedure Date: 06/20/2022 Procedure: Colonoscopy Indications: Screening for colorectal malignant neoplasm, Thisis the patient's first colonoscopy Providers: Goerge Jaimes M.D., Yarelis Andres CRNA (Anesthesia Staff), Sylvia Schultz RN, Vipul Ortega, Bird Tender Referring MD: Hoang Gilbert M.D. Medicines: Monitored [...] by the physician, the nurse and the pickup driver in the procedure room. Mental Status Examination: [...] pathology results. Procedure Code(s): --- Professional --- 02972, Colonoscopy, flexible; with removal of tumor(s), polyp(s), or other lesion(s) by snare technique 93909, 59, Colonoscopy, flexible; with biopsy,single or multiple Diagnosis Code(s): --- Professional --- Z12.11, Encounter for screening for malignantneoplasm of colon D12.4, Benign neoplasm of descending colon D12.7, Benign neoplasm of rectosigmoid junction CPT copyright 2020 [employer]. All rights reserved. The codes documented in this report are preliminary and upon program paraprofessional reviewmay be revised to meet current compliance requirements. Electronically signed by George Jaimes M.D. George Jaimes M.D. 06/20/2022 10:55:42 AM Number of Addenda: 0 Note Initiated On: 06/20/2022 10:05 AM George Jaimes MD ENDOSCOPY PROCEDURES Fi nal Result from Last 3 Months or Most Recently Relevant to Health Maintenance Insurance [employer] ACCESS CHOICE [employer] ACCESS CHOICE [employer] ACCESS CHOICE [facility] Address: [address] [place] [address] [employer] ACCESS CHOICE [facility] Address: [address] [place] [address] Care Teams Railway Track Worker Relationship Specialty Start Date End Date Hoang Gilbert MD PCP - General Family Medicine 03/19/23
--- OUTSIDE RECORDS SUMMARY | 2024-11-04 03:43 | XMS_ITS | Encounter Summary ---
Author Organization [facility] Care Team Providers Care Director Corporate Name Role Phone Hoang Gilbert MD Primary Care Provider Hoang Gilbert MD Primary Care Provider [phone] Hoang Gilbert MD Unavailable [phone] Hoang Gilbert MD Primary Care Provider [phone] Encounter Details Date Type Department Care Team (Latest Contact Info) Description 12/21/2015 Orders Only [facility] ProviderHeidi MD [address] [place] [id number] Social History Tobacco Use Types Packs/Day Years Used Date Smoking Tobacco: Former Sex and Gender Information Value Date Recorded Sex Assigned at Not on file Legal Sex Male 11:01 AM PARTY PLAN SALES CONSULTANT Gender Identity Male 06/01/2020 11:20 AM PARTY PLAN SALES CONSULTANT Sexual Orientation Straight 06/01/2020 11 :20 AM PARTY PLAN SALES CONSULTANT documented as of this encounter Plan of [...] on filedocumented in this encounter Care Teams Director Corporate Relationship Specialty Start Date End Date Hoang Gilbert MD PCP - General Family Medicine 11/24/18 12/30/18 Hoang Gilbert MD PCP - General 12/31/18 03/18/23 Hoang Gilbert MD PCP - General Family Medicine 03/19/23 Hoang Gilbert MD Family Medicine 12/31/18 03/18/23 documented as of this encounter
--- OUTSIDE RECORDS SUMMARY | 2024-11-04 03:43 | XMS_ITS | Clinical Summary ---
Author Organization [facility] Address [address] [place] [address] Care Team Providers Care Grey Goods Marker Name Role Phone Hoang Gilbert MD Primary Care Provider [phone] Social History Tobacco Use Types Packs/Day Years [...] age to complete this topic Care Teams Grey Goods Marker Relationship Specialty Start Date End Date Hoang Gilbert MD [address] [address] PCP - General FAMILY PRACTICE 03/31/23
--- OUTSIDE RECORDS SUMMARY | 2024-11-04 03:43 | XMS_ITS | Clinical Summary ---
Author Organization [facility] Address [address] [place] [address] Phone Care Team Providers Care Colored Leather Setter Name Role Phone Hoang Gilbert MD Primary Care Provider [phone] Allergies Active Allergy Reactions Criticality Noted Date [...] 2) 2021 INFLUENZA VACCINE (#1) [address] BLUE ACCESS CHOICE Care Teams Colored Leather Setter Relationship Specialty Start Date End Date Hoang Gilbert MD PCP - General Family Practice 03/30/18
[2024-11-04] MEDS: IBUPROFEN 400 MG TABLET 800 MG PO (03:45)
[2024-11-04] MEDS: ACETAMINOPHEN 500 MG TABLET 1000 MG PO (03:45)
[2024-11-04] MEDS: TETRACAINE HCL 0.5% OPHTH SOLN 4 ML BTL 1 DROP (03:46)
[2024-11-04] MEDS: FLUORESCEIN SOD 1 MG/STRIP (03:46)
== END 2024-11-04 03:59 | disposition home or self-care (01) ==
PROVIDERS: Emergency Provider Emergency Medicine; PCP Family Medicine
DX: S05.02XA Injury of conjunctiva and corneal abrasion without foreign body, left eye, initial encounter (principal); X58.XXXA Exposure to other specified factors, initial encounter; E78.00 Pure hypercholesterolemia, unspecified; K21.9 Gastro-esophageal reflux disease without esophagitis; I10 Essential (primary) hypertension; J45.909 Unspecified asthma, uncomplicated
CPT/HCPCS: 99283; A9270